=== PATIENT | female | born 1960 | race Caucasian/White ===

== ENCOUNTER → 2017-09-18 | Outpatient (CLI) | payer OTHER ==
[~2017-09-18] MED LIST: ALBU6.7H INH; DICL75TA PO; IRON18TA PO; LEVO25TA4 PO; PROZ20CA11 PO; TYLETAB34 PO
--- NOTE | 2017-09-18 14:45 | RADRPT ---
EXAM DATE/TIME: 09/18/2017 14:27 [facility] COMPARISON: No previous studies available for comparison. INDICATIONS : Evaluate for pneumonia, pneumothorax and communicable diseases. Pre-op hysterectomy MEDICAL HISTORY : Asthma SURGICAL HISTORY : None. ENCOUNTER: Initial ACUITY: 1 day PAIN SCORE: 0/10 LOCATION: chest FINDINGS: PA and lateral views of the chest demonstrate the lungs to be symmetrically aerated without evidence of mass, infiltrate or effusion. The cardiomediastinal contours are unremarkable. Osseous structure s demonstrate degenerative changes in the thoracic spine but are otherwise intact. CONCLUSION: 1. No acute cardiopulmonary findings identified. Gary Sanchez MD on September 18, 2017 at 14:41 Board Certified Radiologist. This report was verified electronically.
--- NOTE | 2017-09-19 20:54 | EKG ---
Date Performed: 09/18/2017 Time Performed: 13:28:31 PTAGE: 57 years EKG: Sinus rhythm LOW QRS VOLTAGE IN PRECORDIAL LEADS BORDERLINE ECG NO PREVIOUS TRACING DOCTOR: Bereket Farmer Interpretating Date/Time 09/19/2017 20:53:04
== END ==
LOC: CPRE 13:13
PROVIDERS: ATTEND Obstetrics & Gynecology
DX: Z01.811 Encounter for preprocedural respiratory examination (principal); Z01.810 Encounter for preprocedural cardiovascular examination; N81.10 Cystocele, unspecified; N83.209 Unspecified ovarian cyst, unspecified side; N81.6 Rectocele; R94.31 Abnormal electrocardiogram [ECG] [EKG]
CPT/HCPCS: 71046; 93005

== ENCOUNTER 2017-09-26 11:48 | Observation (INO) | payer OTHER ==
[~2017-09-26] VITALS: Ht 170.2 cm; Wt 103.6 kg
[2017-09-26] MEDS ORDERED: ceFAZolin INJ 1,000 MG VIAL IV ONE (12:00)
[2017-09-26] MEDS ORDERED: ONDANSETRON HCL 4 MG/2 ML VIAL IV ONE (12:00)
[2017-09-26] MEDS ORDERED: LACTATED RINGER'S 1000 ML INJ 2,000 ML IV ONE (12:00)
[2017-09-26] MEDS ORDERED: NEOSTIGMINE 5 MG/5 ML SYRINGE IV PUSH ONE (12:00)
[2017-09-26] MEDS ORDERED: VECURONIUM BROMIDE 20 MG VIAL IV ONE (12:00)
[2017-09-26] MEDS ORDERED: ePHEDrine/NS 25 MG/5 ML SYRINGE IV ONE (12:00)
[2017-09-26] MEDS ORDERED: DEXAMETHASONE SOD PHOS 4 MG/ML VIAL IV ONE (12:00)
[2017-09-26] MEDS ORDERED: ROCURONIUM INJ 50 MG/5 ML SYRINGE IV PUSH ONE (12:00)
[2017-09-26] MEDS ORDERED: LIDOCAINE HCL 1% PF 5 ML SYRINGE OTHER ONE (12:00)
[2017-09-26] MEDS ORDERED: GLYCOPYRROLATE 1 MG/5 ML SYRINGE IV PUSH ONE (12:00)
[2017-09-26] MEDS ORDERED: STERILE WATER FOR INJECTION 20 ML VIAL IV ONE (12:00)
[2017-09-26] MEDS ORDERED: PROPOFOL 200 MG/20 ML AMP IV ONE (12:00)
[2017-09-26] MEDS ORDERED: CHLORHEXIDINE GLUCONATE 2 % 1 PACK (2 CLOTHS) TOPICAL PRN (12:30)
[2017-09-26] MEDS ORDERED: SODIUM CHLORID 0.9% 500 ML IV PRN (12:30)
[2017-09-26] MEDS ORDERED: METOPROLOL TARTRATE 25 MG TAB PO PRN (12:30)
[2017-09-26] MEDS ORDERED: POVIDONE IODINE 5% (ANTISEPSIS KIT) 4 APPLICATIONS EACH NARE PRN (12:30)
[2017-09-26] MEDS ORDERED: LACTATED RINGER'S 1000 ML IV PRN (12:30)
[2017-09-26] MEDS ORDERED: ACETAMINOPHEN 1000 MG/100 ML 100 ML IV ONE (14:55)
[2017-09-26] MEDS ORDERED: ESTROGENS CONJUGATED VAG CREA 15 APPL/30 GM TUBE ONE (15:05)
[2017-09-26] MEDS ORDERED: SODIUM CHLORIDE 0.9% 20 ML VIAL ONE (15:05)
[2017-09-26] MEDS ORDERED: APREPITANT 40 MG CAP ONE (15:16)
[2017-09-26] MEDS ORDERED: FAMOTIDINE 20 MG/2 ML VIAL ONE (15:16)
[2017-09-26] MEDS ORDERED: KETAMINE HCL 10 MG/5 ML SYRINGE IV PUSH ONE (15:31)
[2017-09-26] MEDS ORDERED: BUPIVACAINE/EPINEPHRINE 0.25% 50 ML VIAL ONE (15:36)
[2017-09-26] MEDS ORDERED: ceFAZolin INJ 1,000 MG VIAL ONE (16:20)
[2017-09-26] MEDS ORDERED: ZOLPIDEM TARTRATE 5 MG TAB PO PRN (19:30)
[2017-09-26] MEDS ORDERED: LORazepam 0.5 MG TAB PO PRN (19:30)
[2017-09-26] MEDS ORDERED: ALBUTEROL SULFATE 90 MCG/ACT HFA 8 GM INHALER INH PRN (19:30)
[2017-09-26] MEDS ORDERED: ONDANSETRON HCL 4 MG/2 ML VIAL IVP PRN (19:30)
[2017-09-26] MEDS ORDERED: diphenhydrAMINE HCL 25 MG CAP PO PRN (19:30)
[2017-09-26] MEDS ORDERED: SODIUM CHLORIDE 0.9% FLUSH 10 ML FLUSH IV FLUSH PRN (19:30)
[2017-09-26] MEDS ORDERED: DO NOT ADM ANY ANTICOAGULANT DRUGS PRN (19:37)
[2017-09-26] MEDS ORDERED: MIDAZOLAM HCL 2 MG/2 ML VIAL ONE (19:46)
[2017-09-26] MEDS: LACTATED RINGER'S 1000 ML INJ 1,000 ML IV SCH (20:00)
[2017-09-26] MEDS ORDERED: *morphine SULFATE 8 MG/ML PERIprocedure ONLY ONE (20:19)
[2017-09-26] MEDS ORDERED: HYDROmorphone HCL PF 2 MG/ML VIAL IV PUSH PRN (20:30)
[2017-09-26] MEDS: SODIUM CHLORIDE 0.9% FLUSH 10 ML FLUSH IV FLUSH SCH (21:00)
[2017-09-26] MEDS: oxyCODONE/ACETAMINOPHEN 5 MG/325 MG TAB PO PRN (21:24)
[2017-09-26] MEDS: DOCUSATE SODIUM 100 MG CAP PO SCH (21:24)
[2017-09-26 21:26] VITALS: BP 94/61; PULSE 74; RESP 19; TEMP 97.7; O2SAT 97
[2017-09-26 23:56] VITALS: BP 96/59; PULSE 73; RESP 18; TEMP 97.9; O2SAT 98
[2017-09-27] MEDS: oxyCODONE/ACETAMINOPHEN 5 MG/325 MG TAB PO PRN ×4 (01:16→20:50)
[2017-09-27] MEDS: LACTATED RINGER'S 1000 ML INJ 1,000 ML IV SCH ×3 (03:28→19:28)
[2017-09-27 04:24] VITALS: BP 92/54; PULSE 72; RESP 18; TEMP 98.2; O2SAT 96
[2017-09-27] MEDS: LEVOTHYROXINE SODIUM 25 MCG TAB PO SCH (05:36)
[2017-09-27 05:51] LABS: BASOPHIL % 0.6 % (0.0-2.0); HEMATOCRIT 28.8 % (35.0-46.0); LYMPH % 6.4 % (9.0-44.0); MEAN CELL VOLUME 89.1 FL (80.0-100.0); MEAN CORPUSCULAR HEMOGLOBIN 30.8 PG (27.0-34.0); MEAN CORPUSCULAR HGB CONC 34.6 % (32.0-36.0); MEAN PLATELET VOLUME 8.2 FL (7.0-11.0); MONO % 5.4 % (0.0-8.0); NEUT % 87.6 % (16.0-70.0); PLATELET COUNT 188 TH/MM3 (150-450); RED BLOOD COUNT 3.24 MIL/MM3 (4.00-5.30); RED CELL DISTRIBUTION WIDTH 13.1 % (11.6-17.2); WHITE BLOOD COUNT 7.7 TH/MM3 (4.0-11.0)
[2017-09-27 05:52] LABS: AUTOMATED NEUTROPHIL # 6.7 TH/MM3 (1.8-7.7); LYMPHOCYTE # 0.5 TH/MM3 (1.0-4.8); MONOCYTE # 0.4 TH/MM3 (0-0.9)
[2017-09-27 06:14] LABS: BICARBONATE 25.8 MEQ/L (21.0-32.0); CREATININE 0.63 MG/DL (0.50-1.00)
[2017-09-27 07:45] VITALS: BP 85/48; PULSE 72; RESP 14; TEMP 97.2
[2017-09-27 08:28] VITALS: BP 92/51; O2SAT 98
[2017-09-27] MEDS: SODIUM CHLORIDE 0.9% FLUSH 10 ML FLUSH IV FLUSH SCH ×2 (09:00→19:28)
--- NOTE | 2017-09-27 09:13 | HHI.PR ---
Subjective Remarks Doing well, pain is well controlled, Objective Vital Signs Vital Signs Date Time Temp Pulse Resp B/P (MAP) Pulse Ox O2 Delivery O2 Flow Rate FiO2 09/27/17 04:24 98.2 72 18 92/54 (67) 96 09/26/17 23:56 97.9 73 18 96/59 (71) 98 09/26/17 22:20 Nasal Cannula 1.00 09/26/17 21:26 97.7 74 19 94/61 (72) 97 09/26/17 20:45 74 14 96/50 (65) 95 Nasal Cannula 2 09/26/17 20:31 71 14 104/51 (68) 92 Nasal Cannula 2 09/26/17 20:15 82 22 112/58 (76) 92 Nasal Cannula 2 09/26/17 20:00 94 16 113/59 (77) 96 Nasal Cannula 2 09/26/17 19:45 77 14 108/60 (76) 96 Nasal Cannula 2 09/26/17 19:35 98.6 79 19 102/54 (70) 99 Nasal Cannula 2 09/26/17 12:40 97.9 74 20 110/65 (80) 96 I/O 09/26/17 09/26/17 09/26/17 09/27/17 09/27/17 09/27/17 07:00 15:00 23:00 07:00 15:00 23:00 Intake Total 2900 ml 1300 ml Output Total 750 ml 800 ml Balance 2150 ml 500 ml Intake Oral 250 ml IV Total 2900 ml 1050 ml Output Urine Total 350 ml 800 ml Estimated Blood Loss 400 ml Result Diagram: 09/27/17 0457 09/27/17 0457 Objective Remarks Chest is clear, regular rate and rhythm. Abdomen is soft and non-distended. bandaids are clean and dry. Ext no CCE. escobar to bsd clear urine A/P Assessment and Plan Post Op Day 1 Doing well pt to eat, ambulate and shower today we will dc escobar tomorrow am routine care will consider dc in 1-2 days Sena Roca MD Sep 27, 2017 09:13
[2017-09-27] MEDS: FLUoxetine HCL 20 MG CAP PO SCH (09:42)
[2017-09-27] MEDS: DOCUSATE SODIUM 100 MG CAP PO SCH ×2 (09:42→20:46)
[2017-09-27] MEDS: IRON SUCROSE INJ 200 MG in SODIUM CHLORIDE 0.9% INJ 100 ML IV SCH (10:52)
[2017-09-27 11:10] VITALS: BP 92/49; PULSE 77; RESP 18; TEMP 98.1; O2SAT 96
[2017-09-27] MEDS: IBUPROFEN 600 MG TAB PO PRN ×2 (14:53→20:48)
[2017-09-27 14:55] VITALS: BP 85/49; PULSE 69; RESP 16; TEMP 98.6; O2SAT 99
[2017-09-27 20:00] VITALS: BP 83/50; PULSE 82; RESP 16; TEMP 98.3; O2SAT 96
[2017-09-28] VITALS (7 sets, daily range): BP systolic 89–104; BP diastolic 47–61; PULSE 70–79; RESP 16–20; TEMP 97.8–98.8; O2SAT 95–98
[2017-09-28] MEDS: LACTATED RINGER'S 1000 ML INJ 1,000 ML IV SCH (03:28)
[2017-09-28] MEDS: IBUPROFEN 600 MG TAB PO PRN ×3 (05:30→21:43)
[2017-09-28] MEDS: LEVOTHYROXINE SODIUM 25 MCG TAB PO SCH (05:30)
[2017-09-28] MEDS: oxyCODONE/ACETAMINOPHEN 5 MG/325 MG TAB PO PRN ×4 (05:30→21:44)
[2017-09-28 05:53] LABS: BASOPHIL % 0.5 % (0.0-2.0); EOSINOPHIL # 0.7 TH/MM3 (0-0.4); EOSINOPHIL % 10.5 % (0.0-4.0); HEMATOCRIT 25.2 % (35.0-46.0); HEMOGLOBIN 8.6 GM/DL (11.6-15.3); LYMPH % 23.8 % (9.0-44.0); LYMPHOCYTE # 1.6 TH/MM3 (1.0-4.8); MEAN CELL VOLUME 90.6 FL (80.0-100.0); MEAN CORPUSCULAR HGB CONC 34.2 % (32.0-36.0); MEAN PLATELET VOLUME 8.3 FL (7.0-11.0); MONO % 7.5 % (0.0-8.0); MONOCYTE # 0.5 TH/MM3 (0-0.9); NEUT % 57.7 % (16.0-70.0); PLATELET COUNT 157 TH/MM3 (150-450); RED BLOOD COUNT 2.78 MIL/MM3 (4.00-5.30); WHITE BLOOD COUNT 6.9 TH/MM3 (4.0-11.0)
[2017-09-28] MEDS: DOCUSATE SODIUM 100 MG CAP PO SCH ×2 (08:40→21:43)
[2017-09-28] MEDS: FLUoxetine HCL 20 MG CAP PO SCH (08:40)
[2017-09-28] MEDS: IRON SUCROSE INJ 200 MG in SODIUM CHLORIDE 0.9% INJ 100 ML IV SCH (08:44)
--- NOTE | 2017-09-28 09:02 | HHI.PR ---
Subjective Remarks Doing well, pain is well controlled, eating well. Objective Vital Signs Vital Signs Date Time Temp Pulse Resp B/P (MAP) Pulse Ox O2 Delivery O2 Flow Rate FiO2 09/28/17 07:44 98.1 74 18 97/60 (72) 97 09/28/17 04:00 98.0 79 16 89/51 (64) 97 09/28/17 00:00 98.8 78 18 97/47 (64) 95 09/27/17 20:00 98.3 82 16 83/50 (61) 96 09/27/17 14:55 98.6 69 16 85/49 (61) 99 09/27/17 11:10 98.1 77 18 92/49 (63) 96 09/27/17 10:42 18 I/O 09/27/17 09/27/17 09/27/17 09/28/17 09/28/17 09/28/17 07:00 15:00 23:00 07:00 15:00 23:00 Intake Total 1300 ml 2388 ml 1026 ml Output Total 800 ml 1400 ml 1800 ml Balance 500 ml -1400 ml 2388 ml -774 ml Intake Oral 250 ml 800 ml 240 ml IV Total 1050 ml 1588 ml 786 ml Output Urine Total 800 ml 1400 ml 1800 ml # Sanitary Pads 1 Pads Result Diagram: 09/28/17 0456 09/27/17 0457 Objective Remarks Chest is clear, regular rate and rhythm. Abdomen is soft and non-distended. incisions are clean and dry. Ext no CCE. escobar out this am, pt has voided A/P Assessment and Plan Post Op Day 2 Doing well, pain well controled with oral pain medication H/H 8.6/25.2,pt will get next dose of venofer today ambulating in room without SOB, dizziness or chest pain we will do 2 post residual voids routine care will consider diogenes tomorrow Starla Dorantes Sep 28, 2017 09:02
--- NOTE | 2017-09-28 10:57 | PD.CONS ---
HPI Service [facility] Hospitalists Consult Requested By Dr. Roca Reason for Consult Hypoxemia Primary Care Physician Sarika Pineda MD Diagnoses: History of Present Illness 57-year-old female admitted to the hospital for hysterectomy. Patient had hypoxemia postoperatively, hospitalist service consulted for medical management. On my evaluation, she reports a history of asthma which has been well controlled with albuterol inhalers. She is currently on room air and states she is feeling back to her normal self. She denies any cough or wheezing. No fevers. Review of Systems Constitutional: DENIES: Fever Respiratory: DENIES: Cough, Wheezing, Shortness of breath Except as stated in HPI: all other systems reviewed are Neg Past Family Social History Allergies: Coded Allergies: Penicillins (Verified Allergy, Severe, Shortness of Breath, 09/26/17) sulfacetamide (Verified Adverse Reaction, Severe, Nausea/Vomiting, 09/26/17 ) Past Medical History Asthma Iron deficiency anemia per the patient Past Surgical History Hysterectomy Tonsillectomy Reported Medications Reported Meds & Active Scripts Active Reported Iron (Ferrous Sulfate) 18 Mg Tab 1 Tab PO DAILY Tylenol-Codeine #3 (Acetaminophen-Codeine) 300-30 mg Tab 1 Tab PO Q6H PRN Prozac (Fluoxetine HCl) 20 Mg Cap 20 Mg PO DAILY Levothyroxine (Levothyroxine Sodium) 25 Mcg Tab 25 Mcg PO DAILY Proventil Hfa 6.7 GM Inh (Albuterol Sulfate) 90 Mcg/Act Aer 2 Puff INH Q4-6H PRN Diclofenac Sodium DR (Diclofenac Sodium) 75 Mg Tabdr 75 Mg PO DAILY Family History Reviewed and is noncontributory. Social History Patient denies tobacco or alcohol use. Physical Exam Vital Signs Vital Signs Date Time Temp Pulse Resp B/P (MAP) Pulse Ox O2 Delivery O2 Flow Rate FiO2 09/28/17 07:44 98.1 74 18 97/60 (72) 97 09/28/17 04:00 98.0 79 16 89/51 (64) 97 09/28/17 00:00 98.8 78 18 97/47 (64) 95 09/27/17 20:00 98.3 82 16 83/50 (61) 96 09/27/17 14:55 98.6 69 16 85/49 (61) 99 09/27/17 11:10 98.1 77 18 92/49 (63) 96 Physical Exam GENERAL: This is a well-nourished, well-developed patient, in no apparent distress. SKIN: No rashes, ecchymoses or lesions. Cool and dry. HEAD: Atraumatic. Normocephalic. No temporal or scalp tenderness. EYES: Pupils equal round and reactive. Extraocular motions intact. No scleral icterus. No injection or drainage. ENT: Nose without bleeding, purulent drainage or septal hematoma. Throat without erythema, tonsillar hypertrophy or exudate. Uvula midline. Airway patent. NECK: Trachea midline. No JVD or lymphadenopathy. Supple, nontender, no meningeal signs. CARDIOVASCULAR: Regular rate and rhythm without murmurs, gallops, or rubs. RESPIRATORY: Clear to auscultation. Breath sounds equal bilaterally. No wheezes , rales, or rhonchi. GASTROINTESTINAL: Abdomen soft, non-tender, nondistended. No hepato-splenomegaly , or palpable masses. No guarding. MUSCULOSKELETAL: Extremities without clubbing, cyanosis, or edema. No joint tenderness, effusion, or edema noted. No calf tenderness. Negative Homans sign bilaterally. NEUROLOGICAL: Awake and alert. Cranial nerves II through XII intact. Motor and sensory grossly within normal limits. Five out of 5 muscle strength in all muscle groups. Normal speech. Laboratory Laboratory Tests Test 09/28/17 04:56 White Blood Count 6.9 Red Blood Count 2.78 Hemoglobin 8.6 Hematocrit 25.2 Mean Corpuscular Volume 90.6 Mean Corpuscular Hemoglobin 31.0 Mean Corpuscular Hemoglobin Concent 34.2 Red Cell Distribution Width 13.0 Platelet Count 157 Mean Platelet Volume 8.3 Neutrophils (%) (Auto) 57.7 Lymphocytes (%) (Auto) 23.8 Monocytes (%) (Auto) 7.5 Eosinophils (%) (Auto) 10.5 Basophils (%) (Auto) 0.5 Neutrophils # (Auto) 4.0 Lymphocytes # (Auto) 1.6 Monocytes # (Auto) 0.5 Eosinophils # (Auto) 0.7 Basophils # (Auto) 0.0 CBC Comment DIFF FINAL Differential Comment Result Diagram: 09/28/17 0456 09/27/17 0457 Assessment and Plan Assessment and Plan Hypoxemia post op in a patient with Asthma. Doing well on room air. Recommend continue to use home albuterol inhaler and IS Cleared for DC from my standpoint. F/U with PCP. Discussed Condition With Baakri Ko MD Sep 28, 2017 10:57
--- NOTE | 2017-09-28 16:54 | HHI.DCPOC ---
Discharge Care Plan Diagnosis: (1) Anemia (2) History of hysterectomy for benign disease Report Symptoms to Your Doctor -Temperature above 100.5 degrees -Redness, of incision or excessive or foul smelling drainage -Unusual pain or calf pain -Increased vaginal bleeding -Painful or difficulty urinating -Feelings of extreme sadness or anxiety after 2 weeks Goals to Promote Your Health * To prevent worsening of your condition and complications * To maintain your health at the optimal level Directions to Meet Your Goals Take your medications as prescribed Follow your dietary instruction Follow activity as directed Ensure plenty of rest for recovery Drink fluids for hydration Keep your appointments as scheduled Take your immunizations and boosters as scheduled If your symptoms worsen call your PCP, if no PCP go to Urgent Care Center or Emergency Room Smoking is Dangerous to Your Health. Avoid second hand smoke Call the 24-hour crisis hotline for domestic abuse at Sena Roca MD Sep 28, 2017 16:54
--- NOTE | 2017-09-28 16:55 | HHI.DCPOC ---
Discharge Care Plan Diagnosis: (1) Pelvic relaxation (2) Anemia (3) History of hysterectomy for benign disease Report Symptoms to Your Doctor -Temperature above 100.5 degrees -Redness, of incision or excessive or foul smelling drainage -Unusual pain or calf pain -Increased vaginal bleeding -Painful or difficulty urinating -Feelings of extreme sadness or anxiety after 2 weeks Goals to Promote Your Health * To prevent worsening of your condition and complications * To maintain your health at the optimal level Directions to Meet Your Goals Take your medications as prescribed Follow your dietary instruction Follow activity as directed Ensure plenty of rest for recovery Drink fluids for hydration Keep your appointments as scheduled Take your immunizations and boosters as scheduled If your symptoms worsen call your PCP, if no PCP go to Urgent Care Center or Emergency Room Smoking is Dangerous to Your Health. Avoid second hand smoke Call the 24-hour crisis hotline for domestic abuse at Sena Roca MD Sep 28, 2017 16:55
[2017-09-29 05:00] VITALS: BP 106/63; PULSE 77; RESP 18; TEMP 98.1; O2SAT 97
[2017-09-29] MEDS: IBUPROFEN 600 MG TAB PO PRN (05:10)
[2017-09-29] MEDS: oxyCODONE/ACETAMINOPHEN 5 MG/325 MG TAB PO PRN ×2 (05:11→09:10)
[2017-09-29] MEDS: LEVOTHYROXINE SODIUM 25 MCG TAB PO SCH (06:14)
[2017-09-29 08:00] VITALS: BP 107/68; PULSE 70; RESP 18; TEMP 97.8; O2SAT 97
[2017-09-29] MEDS: IRON SUCROSE INJ 200 MG in SODIUM CHLORIDE 0.9% INJ 100 ML IV SCH (08:54)
[2017-09-29] MEDS: SODIUM CHLORIDE 0.9% FLUSH 10 ML FLUSH IV FLUSH SCH (08:54)
[2017-09-29] MEDS: LACTATED RINGER'S 1000 ML INJ 1,000 ML IV SCH (09:07)
[2017-09-29] MEDS: DOCUSATE SODIUM 100 MG CAP PO SCH (09:09)
[2017-09-29] MEDS: FLUoxetine HCL 20 MG CAP PO SCH (09:09)
--- NOTE | 2017-09-29 11:06 | HHI.PR ---
Subjective Remarks Doing well, pain is well controlled, eating well. No BM yet but good flatus. Objective Vital Signs Vital Signs Date Time Temp Pulse Resp B/P (MAP) Pulse Ox O2 Delivery O2 Flow Rate FiO2 09/29/17 08:00 97.8 70 18 107/68 (81) 97 09/29/17 05:00 98.1 77 18 106/63 (77) 97 09/28/17 23:47 98.1 70 18 93/54 (67) 09/28/17 20:26 98.3 72 18 96/52 (67) 09/28/17 16:00 97.8 78 18 104/61 (75) 98 09/28/17 11:29 98.0 73 20 94/55 (68) 96 I/O 09/28/17 09/28/17 09/28/17 09/29/17 09/29/17 09/29/17 07:00 15:00 23:00 07:00 15:00 23:00 Intake Total 1026 ml Output Total 1800 ml 425 ml Balance -774 ml -425 ml Intake Oral 240 ml IV Total 786 ml Output Urine Total 1800 ml 425 ml Bladder Scan Volume Amount 78 ml 188 ml 175 ml Result Diagram: 09/28/17 0456 09/27/17 0457 Objective Remarks Chest is clear, regular rate and rhythm. Abdomen is soft and non-distended. incisions are clean and dry. Ext no CCE. escobar out this am, pt has voided A/P Assessment and Plan Post Op Day #3 No BM yet will give a Dulcolax suppository Will d/c home and see in 2 weeks Sena Roca MD Sep 29, 2017 11:06
[2017-09-29] MEDS ORDERED: BISACODYL 10 MG SUPP RECTAL ONE (11:15)
--- NOTE | 2017-10-03 08:34 | MP ---
cc: Sena Roca MD DATE OF OPERATION: 09/26/2017 PREOPERATIVE DIAGNOSIS: 1. Symptomatic pelvic relaxation. 2. Cystocele. 3. Rectocele. 4. Right ovarian mass. POSTOPERATIVE DIAGNOSIS: 1. Symptomatic pelvic relaxation. 2. Cystocele. 3. Rectocele. 4. Right ovarian mass. PROCEDURE: Laparoscopic-assisted vaginal hysterectomy with bilateral salpingectomy, right oophorectomy, anterior and posterior repair. ANESTHESIA: General endotracheal intubation. SURGEON: Sena Roca MD FINDINGS: Examination under anesthesia revealed a large rectocele, moderate cystocele. There was +1 uterine descensus. On bimanual exam, I could not palpate the right ovarian mass. Laparoscopic exam revealed a 4 x 5 cm right ovarian mass. It looked benign. The left ovary was normal. The fallopian tubes had been previously ligated and a midportion of each tube was absent. The uterus looked normal in size and shape. The posterior and anterior cul-de-sacs were normal. The upper abdomen was normal. COMPLICATIONS: Large blood loss. COUNTS: Instrument counts were correct. ESTIMATED BLOOD LOSS: 500 mL. FLUIDS: Crystalloid. DISPOSITION: The patient tolerated the procedure well and went to the recovery room in good condition. DESCRIPTION OF PROCEDURE: The patient was taken to the operating theater and identified by name band and verbally. She was given a general anesthetic and placed in the dorsal lithotomy position. She was prepped and draped in the usual sterile manner for a laparoscopic-assisted vaginal hysterectomy and a Love catheter was inserted. A time-out was taken and once everyone agreed, we proceeded with this examination under anesthesia with the above findings. A weighted speculum was placed in the vagina. The anterior lip of the cervix was grasped with a single-tooth tenaculum. The cervix was dilated and a Hulka clamp was placed for uterine manipulation. The attention was turned to the umbilical area. A small subumbilical incision was made and the abdomen was entered under direct vision without incident. A pneumoperitoneum was created with 3 liters of CO2. Inferolateral to the umbilicus bilaterally, we placed, 2 more 5 mm ports for uterine manipulation and for the Harmonic scalpel. We began with the round ligaments. They were taken down without difficulty and the bladder flap was begun. We noticed quite a bit of oozing at this point. She did have quite a bit of bleeding from the laparoscopic hysterectomy. The right ovary was noted and the infundibulopelvic ligament was then taken down with the Harmonic scalpel and that pedicle was hemostatic. The fallopian tube on the left side was then grasped at the fimbriated end and that portion of tube was removed through the 5 mm port. The remainder of that tube was taken down and then we began taking down the broad ligament bilaterally. The bladder flap was then more fully developed and the bladder was pushed out of harms way and we took the uterine vessels at the level of the internal cervical os without difficulty. However, during this entire procedure, she did ooze quite a bit and some of the bleeding had to be controlled with the Kleppinger bipolar forceps. The cardinal ligament was then taken down slowly, taking small bites with the Harmonic scalpel staying right close to the cervix. Once the vaginal apex was obtained, we stopped the dissection. Again, we went and coagulated small bleeders with the Kleppinger forceps. At this point, we went below and we made a circumferential incision around the cervix and removed the entire uterus, tubes and her right ovary. The ovary came out totally intact without difficulty. Again, the vaginal cuff, there was quite a bit of bleeding here, so we immediately closed the cuff and began the anterior repair. We made a small incision below the urethra and took that incision down in a sagittal plane until the vaginal apex was attained. we took the mucosa off of the underlying endopelvic fascia by sharp and blunt dissection without difficulty. Excess mucosa was then trimmed and the endopelvic fascia was plicated from the level of the Love bulb to right below the urethral meatus. The vaginal mucosa was then repaired with 3-0 Vicryl in an interrupted fashion with good hemostatic control. We turned our attention to the perineum. We made an incision along the perineum and undermined the mucosa posteriorly in the midline into the vaginal apex. The vaginal mucosa was dissected off of the endopelvic fascia bilaterally and the endopelvic fascia was then plicated together in an interrupted fashion with 2-0 Vicryl the entire length of the vagina with excellent results. The excess mucosa was trimmed and the vaginal mucosa was plicated with 3-0 Vicryl in an interrupted fashion. The perineum was then built up using a 2-0 Vicryl to go from a coronal to a sagittal plane building up the perineum nicely. This incision was repaired with a 3-0 Vicryl in a subcuticular manner externally until the vaginal outlet was attained. The vagina was then inspected. It was entirely hemostatic and washed out with sterile saline. The vagina was then packed with a 1 inch vaginal packing laden with Premarin. We went back up top because of the excessive bleeding and took a look with the laparoscope. Everything was hemostatic. There was no more bleeding. We irrigated the pelvis out with a large amount of fluid and then we removed the laparoscope under direct vision. The air was released through the second and third punctures and those incisions were repaired with a 4-0 Monocryl in a subcuticular manner. She tolerated the procedure well. She did have a large blood loss and we will be checking her for a bleeding diathesis when she comes back for a postoperative visit and will follow her hematocrit closely postoperatively. R. Krish Roca MD RJV/TABITHA , 07:51 AM , 08:33 AM
== END 2017-09-29 13:11 | disposition home or self-care (01) ==
LOC: HSDC 11:48 → EDUNIT# 15:30 → HSDI 19:32 → H1EA 21:18
PROVIDERS: ADMIT Obstetrics & Gynecology; ATTEND Obstetrics & Gynecology
DX: N81.2 Incomplete uterovaginal prolapse (principal); N81.6 Rectocele; D25.1 Intramural leiomyoma of uterus; N99.61 Intraoperative hemorrhage and hematoma of a genitourinary system organ or structure complicating a genitourinary system procedure; R09.02 Hypoxemia; D50.9 Iron deficiency anemia, unspecified; J45.909 Unspecified asthma, uncomplicated
CPT/HCPCS: 00840; 57260; 58552; 80048; 85025; 88302; 88307; 94150; 96361; 96365; 96376; G0378; J0131; J0690; J1100; J1756; J2250; J2270; J2405; J2710; J3010; J7120; J8501

== ENCOUNTER 2017-10-19 12:18 | Inpatient (IN) | payer SELFPAY ==
[~2017-10-19] VITALS: Ht 170.2 cm; Wt 105.0 kg
[2017-10-19 12:41] VITALS: BP 125/64; PULSE 88; RESP 20; TEMP 101.4; O2SAT 97
[2017-10-19 13:40] LABS: AUTOMATED NEUTROPHIL # 10.3 TH/MM3 (1.8-7.7); BASOPHIL # 0.1 TH/MM3 (0-0.2); EOSINOPHIL # 0.1 TH/MM3 (0-0.4); EOSINOPHIL % 1.1 % (0.0-4.0); HEMATOCRIT 31.4 % (35.0-46.0); HEMOGLOBIN 10.6 GM/DL (11.6-15.3); LYMPH % 9.4 % (9.0-44.0); LYMPHOCYTE # 1.2 TH/MM3 (1.0-4.8); MEAN CELL VOLUME 88.8 FL (80.0-100.0); MEAN CORPUSCULAR HEMOGLOBIN 29.8 PG (27.0-34.0); MEAN CORPUSCULAR HGB CONC 33.6 % (32.0-36.0); MEAN PLATELET VOLUME 8.3 FL (7.0-11.0); MONOCYTE # 0.8 TH/MM3 (0-0.9); NEUT % 82.5 % (16.0-70.0); PLATELET COUNT 223 TH/MM3 (150-450); RED BLOOD COUNT 3.54 MIL/MM3 (4.00-5.30); RED CELL DISTRIBUTION WIDTH 13.2 % (11.6-17.2); WHITE BLOOD COUNT 12.5 TH/MM3 (4.0-11.0)
--- NOTE | 2017-10-19 13:45 | RADRPT ---
EXAM DATE/TIME: 10/19/2017 13:32 [facility] COMPARISON: CHEST PA & LAT, September 18, 2017, 14:27. INDICATIONS : Congestion and coughing. MEDICAL HISTORY : None. SURGICAL HISTORY : None. ENCOUNTER: Initial ACUITY: 1 day PAIN SCORE: 0/10 LOCATION: Bilateral chest FINDINGS: PA and lateral views of the chest demonstrate patchy densities left midlung left upper lobe. Right jennifer ng clear. Heart normal in size. Osseous structures are intact. CONCLUSION: 1. Patchy infiltrates left lung. Medical treatment and followup to resolution using serial radiograph s. Weston Elaine MD on October 19, 2017 at 13:42 Board Certified Radiologist. This report was verified electronically.
[2017-10-19 13:53] LABS: BICARBONATE 26.9 MEQ/L (21.0-32.0); CALCIUM 8.8 MG/DL (8.5-10.1); CREATININE 0.87 MG/DL (0.50-1.00)
[2017-10-19] MEDS ORDERED: MOXIFLOXACIN 400 MG PREMIX 250 ML IV ONE (14:15)
[2017-10-19] MEDS ORDERED: SODIUM CHLOR 0.9% 1000 ML INJ 1,000 ML IV ONE ×2 (14:15→18:30)
[2017-10-19] MEDS ORDERED: VANCOMYCIN INJ 1,000 MG in SODIUM CHLOR 0.9% 250 ML INJ 250 ML IV ONE (14:15)
[2017-10-19] MEDS ORDERED: ONDANSETRON HCL 4 MG/2 ML VIAL IV PUSH ONE (14:15)
[2017-10-19] MEDS ORDERED: MORPHINE SULFATE 2 MG/ML SYRINGE IV PUSH ONE (14:15)
[2017-10-19] MEDS ORDERED: ACETAMINOPHEN 325 MG TAB PO ONE (14:15)
--- NOTE | 2017-10-19 14:20 | PD ---
HPI Chief Complaint: Fever Time Seen by Provider: 13:51 (Norris Alonso) Time Seen by Provider: 13:51 (Ashly Zazueta DO) Travel History International Travel<30 days: No Contact w/Intl Traveler<30days: No Traveled to known affect area: No (Norris Alonso) History of Present Illness HPI 57-year-old female that presents to the ED for evaluation of fever and sore throat and neck pain. Patient reports the symptoms started yesterday. Patient had surgery by Dr. Daly less than a month ago and went to his office today and did a strep test that was positive. Patient complaining of a lot of neck pain and the physician was very concerned. Patient denies any abdominal pain or any trouble with the abdomen. No scar or lesions. Patient was brought here for evaluation of the fever and the neck pain concerning for meningitis. Patient denies any sick contacts. Denies take any immunosuppressants. Per patient she was going to be given azithromycin today but she has not taken it yet. She did took Tylenol 3 with codeine to help with the discomfort with minimal relief. Per patient she feels like her neck is going to give out on her. She denies any falls or injuries. Per patient she has a headache as well. She denies any chest pain or shortness of breath but she states having some cough. No urinary or bowel movement issues. Per patient the pain in the neck is 7 out of 10. She denies ever having to like this before. Allergies to penicillin and sulfa. (Norris Alonso) [facility] Past Medical History Arthritis: Yes Asthma: Yes Depression: Yes Cancer: No Cardiovascular Problems: No Diabetes: No Endocrine: No Genitourinary: No Hepatitis: No Hiatal Hernia: No Immune Disorder: No Kidney Stones: Yes Musculoskeletal: Yes (arthritis both knees) Neurologic: No Psychiatric: Yes Reproductive: No Respiratory: Yes (asthma) Thyroid Disease: Yes ?: Not (Norris Alonso) Past Surgical History Abdominal Surgery: Yes (gallbladder) AICD: No Cardiac Surgery: No Cholecystectomy: Yes (2011) Ear Surgery: No Endocrine Surgery: No Eye Surgery: No Genitourinary Surgery: No Gynecologic Surgery: No Hysterectomy: Yes (september 26, 2017 ) Joint Replacement: No Oral Surgery: Yes (TONSILS A CHILD,WISDOM TEETH REMOVED) Pacemaker: No Thoracic Surgery: No Tonsillectomy: Yes (Norris Alonso) Social History Alcohol Use: Yes (glass of wine per week ) Tobacco Use: No Substance Use: No (Nroris Alonso) Allergies-Medications (Allergen,Severity, Reaction): Coded Allergies: Penicillins (Verified Allergy, Severe, Shortness of Breath, 09/26/17) sulfacetamide (Verified Adverse Reaction, Severe, Nausea/Vomiting, 09/26/17 ) Reported Meds & Prescriptions Reported Meds & Active Scripts Active Reported Prozac (Fluoxetine HCl) 20 Mg Cap 20 Mg PO DAILY Levothyroxine (Levothyroxine Sodium) 25 Mcg Tab 125 Mcg PO DAILY Proventil Hfa 6.7 GM Inh (Albuterol Sulfate) 90 Mcg/Act Aer 2 Puff INH Q4-6H PRN Diclofenac Sodium DR (Diclofenac Sodium) 75 Mg Tabdr 75 Mg PO DAILY (Ashly Zazueta DO) Review of Systems Except as stated in HPI: all other systems reviewed are Neg (Norris Alonso) Physical Exam Narrative GENERAL: SKIN: Warm and dry. HEAD: Atraumatic. Normocephalic. EYES: Pupils equal and round 4 mm reactive to light and accommodation. No scleral icterus. No injection or drainage. ENT: No nasal bleeding or discharge. Mucous membranes pink and moist. Tongue is midline. No uvula deviation. Throat is erythematous. Patient cannot move her neck without severe pain and feels very weak on her neck. Patient cannot do head to chin test on her own from a laying down position. NECK: Trachea midline. No JVD. CARDIOVASCULAR: Regular rate and rhythm. No murmurs, S3, S4. RESPIRATORY: No accessory muscle use. Clear to auscultation. Breath sounds equal bilaterally. GASTROINTESTINAL: Abdomen soft, non-tender, nondistended. Hepatic and splenic margins not palpable. MUSCULOSKELETAL: Extremities without clubbing, cyanosis, or edema. No obvious deformities. Full range of motion of the upper and lower extremities bilaterally. 2+ pulses bilaterally. NEUROLOGICAL: Awake and alert. No obvious cranial nerve deficits. Motor grossly within normal limits. Five out of 5 muscle strength in the arms and legs. Normal speech. PSYCHIATRIC: Appropriate mood and affect; insight and judgment normal. (Norris Alonso) Data Data Last Documented VS Vital Signs Date Time Temp Pulse Resp B/P (MAP) Pulse Ox O2 Delivery O2 Flow Rate FiO2 10/19/17 14:51 82 18 116/53 (74) 93 Room Air 10/19/17 12:41 101.4 (Zazueta,Ashly DO) Orders Orders Complete Blood Count With Diff (10/19/17 12:43) Basic Metabolic Panel (Bmp) (10/19/17 12:43) Lactic Acid (10/19/17 12:43) Blood Culture (10/19/17 12:43) Influenzae A/B Antigen (10/19/17 12:43) Group A Rapid Strep Screen (10/19/17 12:43) Chest, Pa & Lat (10/19/17 ) Urinalysis - C+S If Indicated (10/19/17 12:43) Strep Culture (Group A) (10/19/17 13:15) Csf Cell Count + Differential (10/19/17 14:01) Total Protein, Csf (10/19/17 14:01) Glucose, Csf (10/19/17 14:01) Lumbar Puncture (10/19/17 ) Prothrombin Time / Inr (Pt) (10/19/17 14:01) Act Partial Throm Time (Ptt) (10/19/17 14:01) Iv Access Insert/Monitor (10/19/17 14:04) Ecg Monitoring (10/19/17 14:04) Oximetry (10/19/17 14:04) Sodium Chlor 0.9% 1000 Ml Inj (Ns 1000 M (10/19/17 14:15) Acetaminophen (Tylenol) (10/19/17 14:15) Morphine Inj (Morphine Inj) (10/19/17 14:15) Ondansetron Inj (Zofran Inj) (10/19/17 14:15) Vancomycin Inj (Vancomycin Inj) (10/19/17 14:15) Moxifloxacin 400 Mg Premix (Avelox 400 M (10/19/17 14:15) Urine Culture (10/19/17 14:30) Vital Signs (Adult) .As directed (10/19/17 16:24) Activity Bed Rest (10/19/17 16:24) Notify Radiology (10/19/17 16:24) ^ Encourage Fluids (10/19/17 16:24) Anticoagulant Alert (10/19/17 16:24) Csf Culture And Gram Stain (10/19/17 17:29) Admit Order (Ed Use Only) (10/19/17 18:12) (Ashly Zazueta DO) Labs Laboratory Tests Test 10/19/17 13:13 10/19/17 14:30 10/19/17 15:38 White Blood Count 12.5 TH/MM3 Red Blood Count 3.54 MIL/MM3 Hemoglobin 10.6 GM/DL Hematocrit 31.4 % Mean Corpuscular Volume 88.8 FL Mean Corpuscular Hemoglobin 29.8 PG Mean Corpuscular Hemoglobin Concent 33.6 % Red Cell Distribution Width 13.2 % Platelet Count 223 TH/MM3 Mean Platelet Volume 8.3 FL Neutrophils (%) (Auto) 82.5 % Lymphocytes (%) (Auto) 9.4 % Monocytes (%) (Auto) 6.0 % Eosinophils (%) (Auto) 1.1 % Basophils (%) (Auto) 1.0 % Neutrophils # (Auto) 10.3 TH/MM3 Lymphocytes # (Auto) 1.2 TH/MM3 Monocytes # (Auto) 0.8 TH/MM3 Eosinophils # (Auto) 0.1 TH/MM3 Basophils # (Auto) 0.1 TH/MM3 CBC Comment DIFF FINAL Differential Comment Blood Urea Nitrogen 8 MG/DL Creatinine 0.87 MG/DL Random Glucose 95 MG/DL Calcium Level 8.8 MG/DL Sodium Level 140 MEQ/L Potassium Level 4.0 MEQ/L Chloride Level 107 MEQ/L Carbon Dioxide Level 26.9 MEQ/L Anion Gap 6 MEQ/L Estimat Glomerular Filtration Rate 68 ML/MIN Lactic Acid Level 1.5 mmol/L Prothrombin Time 10.7 SEC Prothromb Time International Ratio 1.1 RATIO Activated Partial Thromboplast Time 27.2 SEC Urine Color YELLOW Urine Turbidity HAZY Urine pH 8.0 Urine Specific [place] 1.016 Urine Protein TRACE mg/dL Urine Glucose (UA) NEG mg/dL Urine Ketones NEG mg/dL Urine Occult Blood SMALL Urine Nitrite NEG Urine Bilirubin NEG Urine Urobilinogen LESS THAN 2.0 MG/DL Urine Leukocyte Esterase LARGE Urine RBC 43 /hpf Urine WBC 120 /hpf Urine Squamous Epithelial Cells 1 /hpf Urine Mucus FEW /lpf Microscopic Urinalysis Comment CULTURE INDICATED CSF Volume (Tube 1) 2.5 ML CSF Supernatant Color (tube 1) CLEAR CSF Gross Blood (Tube 1) 0 CSF Volume (Tube 2) 2.0 ML CSF Supernatant Color (tube 2) CLEAR CSF Gross Blood (Tube 2) 0 CSF Volume (Tube 3) 2.0 ML CSF Supernatant Color (tube 3) CLEAR CSF Gross Blood (Tube 3) 0 CSF Volume (Tube 4) 2.0 ML CSF Supernatant Color (tube 4) CLEAR CSF WBC (Tube 4) 20 /MM3 CSF RBC (Tube 4) 54 /MM3 CSF Neutrophils 0 % CSF Lymphocytes 83 % CSF Monocytes 10 % CSF Histiocytes 7 % CSF Glucose 55 MG/DL CSF Total Protein 36.3 MG/DL (Ashly Zazueta DO) MDM Medical Decision Making Medical Screen Exam Complete: Yes Emergency Medical Condition: Yes Medical Record Reviewed: Yes Interpretation(s) CBC & BMP Diagram 10/19/17 13:13 Calcium Level 8.8 strep and flu negative Last Impressions Chest X-Ray 10/19/17 0000 Signed Impressions: Service Date/Time: Thursday, October 19, 2017 13:32 - CONCLUSION: 1. Patchy infiltrates left lung. Medical treatment and followup to resolution using serial radiographs. Weston Elaine MD Differential Diagnosis Meningitis versus sepsis versus pneumonia versus strep throat versus fever versus influenza Narrative Course 57-year-old female that presents to the ED for evaluation of possible meningitis. Patient was properly examined and was found to have signs and symptoms certainly concerning for meningitis. She does have a high fever. Labs and imaging were done in triage and did show what appears to be possible pneumonia. Physical exam does appear to show issues with the patient moving her neck. She cannot do chin to chest as on her own. Labs and imaging order. Case discussed with my attending who agrees that LP needs to be done. This was ordered. My attending Dr. Zazueta agrees with plan. Labs and imaging showed pneumonia and UTI. Case discussed with Dr. Hummel who agrees to admission. (Norris Alonso) Diagnosis Primary Impression: Meningitis Additional Impressions: Pneumonia Qualified Codes: J18.1 - Lobar pneumonia, unspecified organism UTI (urinary tract infection) Qualified Codes: N30.00 - Acute cystitis without hematuria Admitting Information Admitting Physician Requests: Admit (Norris Alonso) Norris Alonso Oct 19, 2017 14:20 Ashly Zazueta DO Oct 20, 2017 09:39
[2017-10-19 14:51] VITALS: BP 116/53; PULSE 82; RESP 18; O2SAT 93
[2017-10-19 15:05] LABS: INTERNATIONAL NORMALIZED RATIO 1.1 RATIO; PROTHROMBIN TIME - PATIENT 10.7 SEC (9.8-11.6)
[2017-10-19 15:09] LABS: BILIRUBIN, URINE NEG (NEG); BLOOD, URINE SMALL (NEG); GLUCOSE,URINE NEG (NEG); KETONE, URINE NEG (NEG); MUCUS URINE FEW /lpf (OCC); NITRITE,URINE NEG (NEG); SQUAMOUS EPITHELIAL CELL URINE 1 /hpf (0-5); URINE COLOR YELLOW (YELLW/STRAW); URINE LEUKOCYTE ESTERASE LARGE (NEG)
--- NOTE | 2017-10-19 16:20 | RADRPT ---
EXAM DATE/TIME: 10/19/2017 15:38 [place] COMPARISON: No previous studies available for comparison. INDICATIONS : Patient presents with neck pain and fever here for lumbar puncture. MEDICAL HISTORY : Arthritis Asthma Depression Kidney Stones Thyroid Disease SURGICAL HISTORY : Cholecystectomy Hysterectomy Tonsilectomy ENCOUNTER: Initial ACUITY: 2 days PAIN SCORE: 6/10 LOCATION: chest and back LUMBAR PUNCTURE TIME: 15:38 hours FLUORO TIME: .15 minutes IMAGE SERIES: 1 ACCESS LEVEL: L3-4 OPENING PRESSURE: 22.5 cm of water Not requested. FLUID: 9.5 cc of clear CSF was collected and sent to the laboratory for analysis. PROCEDURE : 1. Fluoroscopic guided lumbar puncture. 2. Recording of opening pressure. The risks, benefits and alternatives to the procedure were explained and verbal and written consent w as obtained. The site was prepped in sterile fashion. Full sterile technique was used, including ca p, mask, sterile gloves and gown and a large sterile sheet. Hand hygiene and 2% chlorhexidine and/or betadine/alcohol prep was utilized per protocol for cutaneous antisepsis. The skin and subcutaneous tissues were infiltrated with local anesthetic solution. With fluoroscopic guidance the lumbar thecal sac was punctured at the above level described above and the opening pressure was recorded. The above described fluid was removed without difficulty. The patient tolerated the procedure well and there were no complications. CONCLUSION: Uncomplicated fluoroscopically guided lumbar puncture with pressures as above. William Trujillo MD on October 19, 2017 at 16:18 Board Certified Radiologist. This report was verified electronically.
[2017-10-19 16:23] LABS: TOTAL PROTEIN,CSF 36.3 MG/DL (15.0-45.0)
[2017-10-19 17:20] LABS: VOLUME TUBE # 1 2.5 ML
[2017-10-19 17:21] LABS: SUPERNATE COLOR TUBE #1 CLEAR (CLEAR)
[2017-10-19 17:22] LABS: CSF HISTIOCYTES 7 %; CSF LYMPHOCYTES 83 %; CSF MONOCYTES 10 %; CSF NEUTROPHILS 0 %; RBC TUBE #4 54 /MM3; WBC TUBE #4 20 /MM3 (0-10)
--- NOTE | 2017-10-19 18:19 | PD ---
Physical Exam Narrative I, Dr. Zazueta, have reviewed the advance practice practitioner's documentation and am in agreement, met with the patient face to face, made the diagnosis, and the medical decision making was done by me. *My assessment and Findings: Meningitis vs. tension headache vs. pneumonia 57yo F was sent by her [employer] Dr. Armstrong for fever, headache and neck pain since yesterday. Pt also has some coughing and throat pain. No exudate on tonsils. No focal neurologic deficits. Pt has no abdominal pain. Pt said her neck is stiff but good range of motion in neck rotation, there is some pain with flexion and extension. No kernig sign. Pt did have a fever of 102F at his office and is complaining of severe headache and neck pain so ordered lumbar puncture to r/o bacterial meningitis. Pt agrees and was empirically given vancomycin and moxifloxacin because she is allergic to penicillin. Labs reviewed, leukocytosis at 12.5. H/H is low but at baseline. Lactic acid 1.5. UA showed large leukocyte. WBC 120. CXR showed patchy infiltrates left lung. Pt is febrile here and given acetaminophen. Pt admitted for sepsis with UTI, pneumonia and r/o meningitis. Data Data Last Documented VS Vital Signs Date Time Temp Pulse Resp B/P (MAP) Pulse Ox O2 Delivery O2 Flow Rate FiO2 10/19/17 14:51 82 18 116/53 (74) 93 Room Air 10/19/17 12:41 101.4 Orders Orders Complete Blood Count With Diff (10/19/17 12:43) Basic Metabolic Panel (Bmp) (10/19/17 12:43) Lactic Acid (10/19/17 12:43) Blood Culture (10/19/17 12:43) Influenzae A/B Antigen (10/19/17 12:43) Group A Rapid Strep Screen (10/19/17 12:43) Chest, Pa & Lat (10/19/17 ) Urinalysis - C+S If Indicated (10/19/17 12:43) Strep Culture (Group A) (10/19/17 13:15) Csf Cell Count + Differential (10/19/17 14:01) Total Protein, Csf (10/19/17 14:01) Glucose, Csf (10/19/17 14:01) Lumbar Puncture (10/19/17 ) Prothrombin Time / Inr (Pt) (10/19/17 14:01) Act Partial Throm Time (Ptt) (10/19/17 14:01) Iv Access Insert/Monitor (10/19/17 14:04) Ecg Monitoring (10/19/17 14:04) Oximetry (10/19/17 14:04) Sodium Chlor 0.9% 1000 Ml Inj (Ns 1000 M (10/19/17 14:15) Acetaminophen (Tylenol) (10/19/17 14:15) Morphine Inj (Morphine Inj) (10/19/17 14:15) Ondansetron Inj (Zofran Inj) (10/19/17 14:15) Vancomycin Inj (Vancomycin Inj) (10/19/17 14:15) Moxifloxacin 400 Mg Premix (Avelox 400 M (10/19/17 14:15) Urine Culture (10/19/17 14:30) Vital Signs (Adult) .As directed (10/19/17 16:24) Activity Bed Rest (10/19/17 16:24) Notify Radiology (10/19/17 16:24) ^ Encourage Fluids (10/19/17 16:24) Anticoagulant Alert (10/19/17 16:24) Csf Culture And Gram Stain (10/19/17 17:29) Admit Order (Ed Use Only) (10/19/17 18:12) Labs Laboratory Tests Test 10/19/17 13:13 10/19/17 14:30 10/19/17 15:38 White Blood Count 12.5 TH/MM3 Red Blood Count 3.54 MIL/MM3 Hemoglobin 10.6 GM/DL Hematocrit 31.4 % Mean Corpuscular Volume 88.8 FL Mean Corpuscular Hemoglobin 29.8 PG Mean Corpuscular Hemoglobin Concent 33.6 % Red Cell Distribution Width 13.2 % Platelet Count 223 TH/MM3 Mean Platelet Volume 8.3 FL Neutrophils (%) (Auto) 82.5 % Lymphocytes (%) (Auto) 9.4 % Monocytes (%) (Auto) 6.0 % Eosinophils (%) (Auto) 1.1 % Basophils (%) (Auto) 1.0 % Neutrophils # (Auto) 10.3 TH/MM3 Lymphocytes # (Auto) 1.2 TH/MM3 Monocytes # (Auto) 0.8 TH/MM3 Eosinophils # (Auto) 0.1 TH/MM3 Basophils # (Auto) 0.1 TH/MM3 CBC Comment DIFF FINAL Differential Comment Blood Urea Nitrogen 8 MG/DL Creatinine 0.87 MG/DL Random Glucose 95 MG/DL Calcium Level 8.8 MG/DL Sodium Level 140 MEQ/L Potassium Level 4.0 MEQ/L Chloride Level 107 MEQ/L Carbon Dioxide Level 26.9 MEQ/L Anion Gap 6 MEQ/L Estimat Glomerular Filtration Rate 68 ML/MIN Lactic Acid Level 1.5 mmol/L Prothrombin Time 10.7 SEC Prothromb Time International Ratio 1.1 RATIO Activated Partial Thromboplast Time 27.2 SEC Urine Color YELLOW Urine Turbidity HAZY Urine pH 8.0 Urine Specific [place] 1.016 Urine Protein TRACE mg/dL Urine Glucose (UA) NEG mg/dL Urine Ketones NEG mg/dL Urine Occult Blood SMALL Urine Nitrite NEG Urine Bilirubin NEG Urine Urobilinogen LESS THAN 2.0 MG/DL Urine Leukocyte Esterase LARGE Urine RBC 43 /hpf Urine WBC 120 /hpf Urine Squamous Epithelial Cells 1 /hpf Urine Mucus FEW /lpf Microscopic Urinalysis Comment CULTURE INDICATED CSF Volume (Tube 1) 2.5 ML CSF Supernatant Color (tube 1) CLEAR CSF Gross Blood (Tube 1) 0 CSF Volume (Tube 2) 2.0 ML CSF Supernatant Color (tube 2) CLEAR CSF Gross Blood (Tube 2) 0 CSF Volume (Tube 3) 2.0 ML CSF Supernatant Color (tube 3) CLEAR CSF Gross Blood (Tube 3) 0 CSF Volume (Tube 4) 2.0 ML CSF Supernatant Color (tube 4) CLEAR CSF WBC (Tube 4) 20 /MM3 CSF RBC (Tube 4) 54 /MM3 CSF Neutrophils 0 % CSF Lymphocytes 83 % CSF Monocytes 10 % CSF Histiocytes 7 % CSF Glucose 55 MG/DL CSF Total Protein 36.3 MG/DL MDM Supervised Visit with IRENE: Yes Diagnosis Primary Impression: Sepsis Qualified Codes: A41.9 - Sepsis, unspecified organism Admitting Information Admitting Physician Requests: Admit Ashly Zazueta DO Oct 19, 2017 18:19
[2017-10-19] MEDS ORDERED: SENNOSIDES 8.6 MG TAB PO PRN (18:45)
[2017-10-19] MEDS ORDERED: SODIUM CHLORIDE 0.9% FLUSH 10 ML FLUSH IV FLUSH PRN (18:45)
[2017-10-19] MEDS ORDERED: NALOXONE HCL 0.4 MG/ML AMP IV PUSH PRN (18:45)
[2017-10-19] MEDS ORDERED: ONDANSETRON HCL 4 MG/2 ML VIAL IVP PRN (18:45)
[2017-10-19] MEDS ORDERED: LACTULOSE SYRUP 20 GM/30 ML CUP PO PRN (18:45)
[2017-10-19] MEDS ORDERED: BISACODYL 10 MG SUPP RECTAL PRN (18:45)
[2017-10-19] MEDS ORDERED: MAGNESIUM HYDROXIDE SUSP 30 ML CUP PO PRN (18:45)
[2017-10-19 18:46] VITALS: BP 101/59; PULSE 67; RESP 16; O2SAT 96
[2017-10-19 19:46] VITALS: TEMP 98.2
--- NOTE | 2017-10-19 20:05 | HHI.HP ---
HPI Service [facility] Primary Care Physician Sena Roca MD Admission Diagnosis Left lower pneumonia, UTI, r/o bacterial meningitis Diagnoses: (1) Sepsis Diagnosis: Principal (2) PNA (pneumonia) Diagnosis: Principal (3) UTI (urinary tract infection) Diagnosis: Principal Travel History International Travel<30 Days: No Contact w/Intl Traveler <30 Da: No Traveled to Known Affected Are: No History of Present Illness This is a 57-year-old female with a PMH of Depression who is referred to the ER by Dr. Roca for evaluation of fever, neck and back pain. Recent Hysterectomy 10/03/17 for right ovarian mass, cystocele and rectocele, reports doing well post-operatively. Was seen as follow up in office today and relayed neck/back pain and fever, referred to ER for concern for meningitis. No c/o headache, no nausea/vomiting, no vision changes. States told she was Strep + in office and given Rx for Azithromycin, however has not started it. On arrival , BP 125/64, HR 88, O2 sat 97% on RA, Temp 101.4. Group A Strep negative . Flu negative. WBC 12.5. Chemistry essentially unremarkable. Lactic Acid 1.5. INR 1.1. UA positive for UTI. CXR with patchy infiltrates left lower and left middle lung. S/p LP by IR, preliminary results negative. S/p Avelox and Vanc IV in ER. Review of Systems Except as stated in HPI: all other systems reviewed are Neg ROS: 14 point review of systems otherwise negative. Past Family Social History Past Medical History PMH: Depression Past Surgical History PAST SURGICAL HISTORY: Cholecystectomy, Hysterectomy, Tonsillectomy, [place] Teeth Removal Allergies: Coded Allergies: Penicillins (Verified Allergy, Severe, Shortness of Breath, 09/26/17) sulfacetamide (Verified Adverse Reaction, Severe, Nausea/Vomiting, 09/26/17 ) Family History PAST FAMILY HISTORY: Reviewed. No h/o DM or CAD Social History PAST SOCIAL HISTORY: Occasional alcohol. Negative for tobacco or drugs. Physical Exam Vital Signs Vital Signs Date Time Temp Pulse Resp B/P (MAP) Pulse Ox O2 Delivery O2 Flow Rate FiO2 10/19/17 19:46 98.2 10/19/17 18:46 67 16 101/59 (73) 96 Room Air 10/19/17 14:51 82 18 116/53 (74) 93 Room Air 10/19/17 12:41 101.4 88 20 125/64 (84) 97 Physical Exam PE: GENERAL: Pleasant middle-aged white female in no acute distress. HEENT: PERRLA, EOMI. No scleral icterus or conjunctival pallor. No lid lag or facial droop. CARDIOVASCULAR: Regular rate and rhythm. No obvious murmurs to auscultation. No chest tenderness to palpation. RESPIRATORY: No obvious rhonchi or wheezing. Clear to auscultation. Breath sounds equal bilaterally. GASTROINTESTINAL: Abdomen soft, non-tender, nondistended. BS normal. MUSCULOSKELETAL: Extremities without clubbing, cyanosis, or edema. No obvious deformities. Full ROM of neck, mild pain w/ flexion/extension. NEUROLOGICAL: Awake, alert and oriented x4. No focal neurologic deficits. Moving both upper and lower extremities spontaneously. Laboratory Laboratory Tests Test 10/19/17 13:13 10/19/17 14:30 10/19/17 15:38 White Blood Count 12.5 Red Blood Count 3.54 Hemoglobin 10.6 Hematocrit 31.4 Mean Corpuscular Volume 88.8 Mean Corpuscular Hemoglobin 29.8 Mean Corpuscular Hemoglobin Concent 33.6 Red Cell Distribution Width 13.2 Platelet Count 223 Mean Platelet Volume 8.3 Neutrophils (%) (Auto) 82.5 Lymphocytes (%) (Auto) 9.4 Monocytes (%) (Auto) 6.0 Eosinophils (%) (Auto) 1.1 Basophils (%) (Auto) 1.0 Neutrophils # (Auto) 10.3 Lymphocytes # (Auto) 1.2 Monocytes # (Auto) 0.8 Eosinophils # (Auto) 0.1 Basophils # (Auto) 0.1 CBC Comment DIFF FINAL Differential Comment Blood Urea Nitrogen 8 Creatinine 0.87 Random Glucose 95 Calcium Level 8.8 Sodium Level 140 Potassium Level 4.0 Chloride Level 107 Carbon Dioxide Level 26.9 Anion Gap 6 Estimat Glomerular Filtration Rate 68 Lactic Acid Level 1.5 Prothrombin Time 10.7 Prothromb Time International Ratio 1.1 Activated Partial Thromboplast Time 27.2 Urine Color YELLOW Urine Turbidity HAZY Urine pH 8.0 Urine Specific [place] 1.016 Urine Protein TRACE Urine Glucose (UA) NEG Urine Ketones NEG Urine Occult Blood SMALL Urine Nitrite NEG Urine Bilirubin NEG Urine Urobilinogen LESS THAN 2.0 Urine Leukocyte Esterase LARGE Urine RBC 43 Urine WBC 120 Urine Squamous Epithelial Cells 1 Urine Mucus FEW Microscopic Urinalysis Comment CULTURE INDICATED CSF Volume (Tube 1) 2.5 CSF Supernatant Color (tube 1) CLEAR CSF Gross Blood (Tube 1) 0 CSF Volume (Tube 2) 2.0 CSF Supernatant Color (tube 2) CLEAR CSF Gross Blood (Tube 2) 0 CSF Volume (Tube 3) 2.0 CSF Supernatant Color (tube 3) CLEAR CSF Gross Blood (Tube 3) 0 CSF Volume (Tube 4) 2.0 CSF Supernatant Color (tube 4) CLEAR CSF WBC (Tube 4) 20 CSF RBC (Tube 4) 54 CSF Neutrophils 0 CSF Lymphocytes 83 CSF Monocytes 10 CSF Histiocytes 7 CSF Glucose 55 CSF Total Protein 36.3 Date/Time Source Procedure Growth Status 10/19/17 13:14 Blood Peripheral Aerobic Blood Culture Pending Received 10/19/17 13:14 Blood Peripheral Anaerobic Blood Culture Pending Received 10/19/17 15:38 Cerebral Spinal Fluid Lumbar Puncture Gram Stain - Final Resulted 10/19/17 15:38 Cerebral Spinal Fluid Lumbar Puncture CSF Culture Pending Resulted 10/19/17 13:15 Throat Group A Streptococcus Screen Pending Received 10/19/17 14:30 Urine Clean Catch Urine Culture Pending Received Result Diagram: 10/19/17 1313 10/19/17 1313 Caprini VTE Risk Assessment Caprini VTE Risk Assessment: No/Low Risk (score <= 1) Caprini Risk Assessment Model Point Value = 1 Point Value = 2 Point Value = 3 Point Value = 5 Age 41-60 Minor surgery BMI > 25 kg/m2 Swollen legs Varicose veins or History of unexplained or recurrent spontaneous Oral contraceptives or hormone replacement Sepsis (< 1 month) Serious lung disease, including pneumonia (< 1 month) Abnormal pulmonary function Acute myocardial infarction Congestive heart failure (< 1 month) History of inflammatory bowel disease Medical patient at bed rest Age 61-74 Arthroscopic surgery Major open surgery (> 45 min) Laparoscopic surgery (> 45 min) Malignancy Confined to bed (> 72 hours) Immobilizing plaster cast Central venous access Age >= 75 History of VTE Family history of VTE Factor V Leiden Prothrombin [id number] Lupus anticoagulant Anticardiolipin antibodies Elevated serum homocysteine Heparin-induced thrombocytopenia Other congenital or acquired thrombophilia Stroke (< 1 month) Elective arthroplasty Hip, pelvis, or leg fracture Acute spinal cord injury (< 1 month) Prophylaxis Regimen Total Risk Factor Score Risk Level Prophylaxis Regimen 0-1 Low Early ambulation 2 Moderate Order ONE of the following: *Sequential Compression Device (SCD) *Heparin 5000 units SQ BID 3-4 Higher Order ONE of the following medications: *Heparin 5000 units SQ TID *Enoxaparin/Lovenox 40 mg SQ daily (WT < 150 kg, CrCl > 30 mL/min) *Enoxaparin/Lovenox 30 mg SQ daily (WT < 150 kg, CrCl > 10-29 mL/min) *Enoxaparin/Lovenox 30 mg SQ BID (WT < 150 kg, CrCl > 30 mL/min) AND/OR *Sequential Compression Device (SCD) 5 or more Highest Order ONE of the following medications: *Heparin 5000 units SQ TID (Preferred with Epidurals) *Enoxaparin/Lovenox 40 mg SQ daily (WT < 150 kg, CrCl > 30 mL/min) *Enoxaparin/Lovenox 30 mg SQ daily (WT < 150 kg, CrCl > 10-29 mL/min) *Enoxaparin/Lovenox 30 mg SQ BID (WT < 150 kg, CrCl > 30 mL/min) AND *Sequential Compression Device (SCD) Assessment and Plan Problem List: (1) Sepsis ICD Code: A41.9 - Sepsis, unspecified organism (2) UTI (urinary tract infection) ICD Code: N39.0 - Urinary tract infection, site not specified Status: Acute (3) PNA (pneumonia) ICD Code: J18.9 - Pneumonia, unspecified organism Assessment and Plan A/P: 1. Sepsis: Temp 101.4, WBC 12.5, Source-UTI/PNA, states told she was Strep + in [employer] office, however Group A negative 10/19/17 per review of results. Flu Negative. Concern for meningitis in light of neck/back pain, s/p LP by IR, preliminary results negative, improved ROM of neck, s/p Vanc/Avelox in ER, continue w/ IV Abx, IVF for hydration. Consult ID as needed for further evaluation. 2. PNA: CXR w/ left lower and left mid lung infiltrates, images reviewed by me. Continue w/ IV Abx, DuoNeb prn, Symbicort. 3. UTI: U/a w/ UTI, IVF for hydration, follow up cultures, continue IV Abx 4. DVT Prophylaxis: SCDs/teds. 5. Social work for DC planning as needed. 6. Case discussed at length with the ER physician, lab/record/imaging reviewed by me. Physician Certification 2 Midnight Certification Type: Admission for Inpatient Services Order for Inpatient Services The services are ordered in accordance with Medicare regulations or non- Medicare payer requirements, as applicable. In the case of services not specified as inpatient-only, they are appropriately provided as inpatient services in accordance with the 2-midnight benchmark. Estimated LOS (days): 2 days is the estimated time the patient will need to remain in the hospital, assuming treatment plan goals are met and no additional complications. Post-Hospital Plan: Not yet determined Problem Qualifiers (1) UTI (urinary tract infection): Qualified Codes: N30.00 - Acute cystitis without hematuria Ness Kapoor MD Oct 19, 2017 20:05
[2017-10-19] MEDS ORDERED: Vancomycin Consult Pharmacy 1 EA OTHER SCH (20:15)
[2017-10-19] MEDS ORDERED: ACETAMINOPHEN 325 MG TAB PO PRN (20:15)
[2017-10-19] MEDS ORDERED: RESP: ALBUTEROL 2.5 MG/IPRATROPIUM 0.5 MG NEB (PRN) NEB (20:15)
[2017-10-19] MEDS ORDERED: VANCOMYCIN 1,500 MG/NS 500 ML IV ONE ×2 (21:00)
[2017-10-19] MEDS: SODIUM CHLORIDE 0.9% FLUSH 10 ML FLUSH IV FLUSH SCH (21:00)
[2017-10-19] MEDS: DOCUSATE SODIUM 50 MG/SENNA 8.6 MG TAB PO SCH (21:00)
[2017-10-19] MEDS: BUDESONIDE-FORMOTEROL 160/4.5 MCG INHALER INH SCH (21:52)
[2017-10-19 21:53] VITALS: BP 115/60; PULSE 72; RESP 16; O2SAT 98
[2017-10-19] MEDS: ACETAMINOPHEN/HYDROcodone 325 MG/10 MG TAB PO PRN (22:02)
[2017-10-19] MEDS: AZTREONAM INJ 1,000 MG in SODIUM CHLORIDE 0.9% INJ 100 ML IV SCH (22:17)
[2017-10-20] VITALS: BP 112/62; PULSE 76; RESP 16; TEMP 98; O2SAT 97
[2017-10-20 05:44] VITALS: BP 108/66; PULSE 80; RESP 16; TEMP 98.2; O2SAT 97
[2017-10-20] MEDS: LEVOTHYROXINE SODIUM 125 MCG TAB PO SCH (05:54)
[2017-10-20] MEDS: ACETAMINOPHEN/HYDROcodone 325 MG/10 MG TAB PO PRN ×2 (05:57→12:00)
[2017-10-20] MEDS: AZTREONAM INJ 1,000 MG in SODIUM CHLORIDE 0.9% INJ 100 ML IV SCH ×3 (06:12→19:44)
--- NOTE | 2017-10-20 07:55 | HHI.PR ---
Subjective Remarks in no acute distress. Tmax 101.4. still with some neck pain but better than last night. Objective Vitals Vital Signs Date Time Temp Pulse Resp B/P (MAP) Pulse Ox O2 Delivery O2 Flow Rate FiO2 10/20/17 05:44 98.2 80 16 108/66 (80) 97 Room Air 10/20/17 04:43 20 10/20/17 04:11 20 10/20/17 00:00 98.0 76 16 112/62 (79) 97 Room Air 10/19/17 21:53 72 16 115/60 (78) 98 Room Air 10/19/17 19:46 98.2 10/19/17 19:30 16 10/19/17 18:46 67 16 101/59 (73) 96 Room Air 10/19/17 14:51 82 18 116/53 (74) 93 Room Air 10/19/17 12:41 101.4 88 20 125/64 (84) 97 I/O 10/19/17 10/19/17 10/19/17 10/20/17 10/20/17 10/20/17 07:00 15:00 23:00 07:00 15:00 23:00 Intake Total 2500 ml Balance 2500 ml Intake IV Total 2500 ml Result Diagram: 10/19/17 1313 10/19/17 1313 Imaging Last Impressions Lumbar Puncture Fluoroscopy 10/19/17 0000 Signed Impressions: Service Date/Time: Thursday, October 19, 2017 15:38 - CONCLUSION: Uncomplicated fluoroscopically guided lumbar puncture with pressures as above. William Trujillo MD Chest X-Ray 10/19/17 0000 Signed Impressions: Service Date/Time: Thursday, October 19, 2017 13:32 - CONCLUSION: 1. Patchy infiltrates left lung. Medical treatment and followup to resolution using serial radiographs. Weston Elaine MD Objective Remarks GENERAL: This is a well-nourished, well-developed patient, in no apparent distress. Neck; with some neck stiffness CARDIOVASCULAR: Regular rate and regular rhythm without murmurs, gallops, or rubs. RESPIRATORY: Clear to auscultation. Breath sounds equal bilaterally. No wheezes , rales, or rhonchi. GASTROINTESTINAL: Abdomen soft, non-tender, nondistended. Normal, active bowel sounds MUSCULOSKELETAL: Extremities without clubbing, cyanosis, or edema. NEURO: Alert & Oriented x4 to person, place, time, situation. Moves all ext x4 Medications and IVs Inpatient Medications Acetaminophen (Tylenol) 650 mg Q4H PRN PO FEVER; Start 10/19/17 at 20:15 Acetaminophen/ Hydrocodone Bitart ([place] 5-325 Mg) 1 tab Q4H PRN PO PAIN 1-5; Start 10/19/17 at 20:15 Acetaminophen/ Hydrocodone Bitart ([place] 10-325 Mg) 1 tab Q4H PRN PO PAIN 6-10 Last administered on 10/20/17at 05:57; Start 10/19/17 at 20:15 Albuterol/ Ipratropium (Duoneb Neb) 1 ampule Q4HR NEB PRN NEB SOB/WHEEZING; Start 10/19/17 at 20:15 Aztreonam 1000 mg/ Sodium Chloride 100 ml @ 200 mls/hr Q8H IV Last administered on 10/20/17at 06:12; Start 10/19/17 at 22:00 Bisacodyl (Dulcolax Supp) 10 mg DAILY PRN RECTAL SEVERE CONSITIPATION; Start at 18:45 Budesonide/ Formoterol Fumarate (Symbicort 160-4.5 Mcg Inh) 2 puff Q12HR INH Last administered on 10/19/17at 21:52; Start 10/19/17 at 21:00 Fluoxetine HCl (PROzac) 20 mg DAILY PO ; Start 10/20/17 at 09:00 Lactulose (Lactulose Liq) 30 ml DAILY PRN PO SEVERE CONSITIPATION; Start at 18:45 Levothyroxine Sodium (Synthroid) 125 mcg DAILY@0600 PO Last administered on at 05:54; Start 10/20/17 at 06:00 Magnesium Hydroxide (Milk Of Magnesia Liq) 30 ml Q12H PRN PO Mild constipation ; Start 10/19/17 at 18:45 Miscellaneous Information SPECIFIC LAB TO BE ... ONCE ONCE .XX ; Start 10/21 at 09:45; Stop 10/21/17 at 09:46 Morphine Sulfate (Morphine Inj) 4 mg ONCE ONCE IV PUSH Last administered on at 14:36; Start 10/19/17 at 14:15; Stop 10/19/17 at 14:16; Status DC Moxifloxacin HCl 250 ml @ 250 mls/hr ONCE ONCE IV Last administered on at 14:38; Start 10/19/17 at 14:15; Stop 10/19/17 at 15:14; Status DC Naloxone HCl (Narcan Inj) 0.4 mg UNSCH PRN IV PUSH SEE LABEL COMMENTS; Start at 18:45 Ondansetron HCl (Zofran Inj) 4 mg Q6H PRN IVP NAUSEA OR VOMITING; Start at 18:45 Pharmacy Profile Note 0 ml @ 0 mls/hr UNSCH OTHER ; Start 10/19/17 at 20:15 Senna/Docusate Sodium (Lela-Colace) 1 tab BID PO ; Start 10/19/17 at 21:00 Sennosides (Senokot) 17.2 mg Q12H PRN PO Moderate constipation; Start 10/19/17 at 18:45 Sodium Chloride (NS Flush) 2 ml BID IV FLUSH Last administered on 10/19/17at 21: 00; Start 10/19/17 at 21:00 Vancomycin HCl 1000 mg/Sodium Chloride 250 ml @ 250 mls/hr ONCE ONCE IV Last administered on 10/19/17at 16:22; Start 10/19/17 at 14:15; Stop 10/19/17 at 15:14 ; Status DC Vancomycin HCl 1500 mg/Sodium Chloride 515 ml @ 257.5 mls/ hr Q12H IV ; Start 10/20/17 at 10:00 A/P Problem List: (1) Sepsis ICD Code: A41.9 - Sepsis, unspecified organism (2) UTI (urinary tract infection) ICD Code: N39.0 - Urinary tract infection, site not specified Status: Acute (3) PNA (pneumonia) ICD Code: J18.9 - Pneumonia, unspecified organism Assessment and Plan 1. Sepsis- pneumonia: Temp 101.4, WBC 12.5. s/p LP with CSF pleocytosis/ gram stain negative- will continue with IV antibiotics and follow the cultures and consult ID. 2. PNA: CXR w/ left lower and left mid lung infiltrates. Continue w/ IV Abx, DuoNeb prn, Symbicort. 3. UTI: U/a w/ UTI, IVF for hydration, follow up cultures, continue IV Abx 4. DVT Prophylaxis: SCDs/teds. Problem Qualifiers (1) UTI (urinary tract infection): Qualified Codes: N30.00 - Acute cystitis without hematuria Yaima Seanz MD Oct 20, 2017 07:55
[2017-10-20 08:25] VITALS: BP 114/64; PULSE 63; RESP 18; TEMP 98; O2SAT 95
[2017-10-20] MEDS: BUDESONIDE-FORMOTEROL 160/4.5 MCG INHALER INH SCH ×2 (09:00→23:15)
[2017-10-20] MEDS: SODIUM CHLORIDE 0.9% FLUSH 10 ML FLUSH IV FLUSH SCH ×2 (09:00→21:25)
[2017-10-20] MEDS: DOCUSATE SODIUM 50 MG/SENNA 8.6 MG TAB PO SCH ×2 (09:00→21:23)
[2017-10-20 09:52] LABS: AUTOMATED NEUTROPHIL # 5.1 TH/MM3 (1.8-7.7); BASOPHIL # 0.1 TH/MM3 (0-0.2); BASOPHIL % 0.6 % (0.0-2.0); EOSINOPHIL # 1.4 TH/MM3 (0-0.4); EOSINOPHIL % 16.7 % (0.0-4.0); HEMATOCRIT 27.4 % (35.0-46.0); HEMOGLOBIN 9.2 GM/DL (11.6-15.3); LYMPH % 17.1 % (9.0-44.0); LYMPHOCYTE # 1.5 TH/MM3 (1.0-4.8); MEAN CELL VOLUME 90.3 FL (80.0-100.0); MEAN CORPUSCULAR HEMOGLOBIN 30.4 PG (27.0-34.0); MEAN CORPUSCULAR HGB CONC 33.7 % (32.0-36.0); MEAN PLATELET VOLUME 8.2 FL (7.0-11.0); MONO % 7.1 % (0.0-8.0); MONOCYTE # 0.6 TH/MM3 (0-0.9); NEUT % 58.5 % (16.0-70.0); PLATELET COUNT 174 TH/MM3 (150-450); RED BLOOD COUNT 3.03 MIL/MM3 (4.00-5.30); RED CELL DISTRIBUTION WIDTH 13.5 % (11.6-17.2); WHITE BLOOD COUNT 8.7 TH/MM3 (4.0-11.0)
[2017-10-20 10:12] LABS: BICARBONATE 25.4 MEQ/L (21.0-32.0); CALCIUM 8.5 MG/DL (8.5-10.1); CREATININE 0.77 MG/DL (0.50-1.00)
[2017-10-20 12:00] VITALS: BP 102/58; PULSE 66; RESP 16; TEMP 98.4; O2SAT 96
[2017-10-20] MEDS: VANCOMYCIN 1,500 MG/NS 500 ML IV SCH ×4 (12:05→21:27)
--- NOTE | 2017-10-20 13:08 | PD.CONS ---
History of Present Illness Service Infectious disease Consult Requested By Dr Saenz Reason for Consult Evaluate patient with fever Primary Care Physician Sena Roca MD Diagnoses: History of Present Illness Patient seen and examined. Records reviewed. Patient is a 57-year-old female, presented to the hospital complaining of 2 day history of fever. She also has been having some mild cough and would bring up some whitish phlegm. Patient recently had a vaginal hysterectomy about 3 weeks ago. According to the patient even prior to her hysterectomy, she has been experiencing suprapubic fullness and discomfort as well as some difficulty initiating her urination. She stated that she has had her urine tested, but has not been told that he was abnormal. Her urinary complain is still present. Patient also has had some neck and radiates anteriorly to her head. NO photophobia. During the start of her urinary problem, she has not had any fevers. Patient denies any chest pain or any shortness of breath. She has not had any nausea or vomiting or any diarrhea. Patient lives with her , and has not been exposed to anyone sick. They have 2 dogs at home. She has not had any recent travel. On admission her WBC was elevated. She has had some fevers. Chest x-ray showing some patchy infiltrates on the left side. Her urinalysis is showing pyuria. Infectious disease consultation has been requested to evaluate the patient. Review of Systems Constitutional: COMPLAINS OF: Fatigue, Fever, Chills Eyes: DENIES: Eye pain Ears, nose, mouth, throat: DENIES: Nasal discharge, Oral lesions, Throat pain, Hoarseness, Ear Pain, Sinus Pain Respiratory: COMPLAINS OF: Cough, Sputum production, DENIES: Hemoptysis, Shortness of breath Cardiovascular: DENIES: Chest pain, Palpitations, Syncope, Dyspnea on Exertion Gastrointestinal: COMPLAINS OF: Abdominal pain, DENIES: Diarrhea, Nausea, Vomiting, Difficulty Swallowing Genitourinary: COMPLAINS OF: Urinary frequency, Urgency Musculoskeletal: COMPLAINS OF: Neck pain, DENIES: Joint pain, Joint Swelling Integumentary: DENIES: Rash Hematologic/lymphatic: DENIES: Lymphadenopathy Immunologic/allergic: DENIES: Urticaria Neurologic: COMPLAINS OF: Headache, DENIES: Localized weakness Psychiatric: DENIES: Hallucinations Past Family Social History Allergies: Coded Allergies: Penicillins (Verified Allergy, Severe, Shortness of Breath, 09/26/17) sulfacetamide (Verified Adverse Reaction, Severe, Nausea/Vomiting, 09/26/17 ) Past Medical History Depression Past Surgical History Cholecystectomy Vaginal Hysterectomy Tonsillectomy [place] Teeth Removal Active Ordered Medications Current Medications Medications (Trade) Dose Ordered Sig/Pearl Route Start Time Stop Time Status Last Admin (NS Flush) 2 ml UNSCH PRN IV FLUSH 10/19/17 18:45 (NS Flush) 2 ml BID IV FLUSH 10/19/17 21:00 10/19/17 21:00 (Zofran Inj) 4 mg Q6H PRN IVP 10/19/17 18:45 (Narcan Inj) 0.4 mg UNSCH PRN IV PUSH 10/19/17 18:45 (Lela-Colace) 1 tab BID PO 10/19/17 21:00 (Milk Of Magnesia Liq) 30 ml Q12H PRN PO 10/19/17 18:45 (Senokot) 17.2 mg Q12H PRN PO 10/19/17 18:45 (Dulcolax Supp) 10 mg DAILY PRN RECTAL 10/19/17 18:45 (Lactulose Liq) 30 ml DAILY PRN PO 10/19/17 18:45 Pharmacy Profile Note 0 ml @ 0 mls/hr UNSCH OTHER 10/19/17 20:15 Aztreonam 1000 mg/ Sodium Chloride 100 ml @ 200 mls/hr Q8H IV 10/19/17 22:00 10/20/17 06:12 ([place] 5-325 Mg) 1 tab Q4H PRN PO 10/19/17 20:15 ([place] 10-325 Mg) 1 tab Q4H PRN PO 10/19/17 20:15 10/20/17 12:00 (Tylenol) 650 mg Q4H PRN PO 10/19/17 20:15 (Duoneb Neb) 1 ampule Q4HR NEB PRN NEB 10/19/17 20:15 (Symbicort 160-4.5 Mcg Inh) 2 puff Q12HR INH 10/19/17 21:00 10/19/17 21:52 (PROzac) 20 mg DAILY PO 10/20/17 09:00 (Synthroid) 125 mcg DAILY@0600 PO 10/20/17 06:00 10/20/17 05:54 Vancomycin HCl 1500 mg/Sodium Chloride 515 ml @ 257.5 mls/ hr Q12H IV 10/20/17 10:00 10/20/17 12:05 Miscellaneous Information SPECIFIC LAB TO BE ... ONCE ONCE .XX 10/21/17 09:45 10/21/17 09:46 Family History Unremarkable Social History Occasional alcohol. Negative for tobacco or drugs. Physical Exam Vital Signs Vital Signs Date Time Temp Pulse Resp B/P (MAP) Pulse Ox O2 Delivery O2 Flow Rate FiO2 10/20/17 08:25 98.0 63 18 114/64 (81) 95 10/20/17 08:14 10/20/17 05:44 98.2 80 16 108/66 (80) 97 Room Air 10/20/17 04:43 20 10/20/17 04:11 20 10/20/17 00:00 98.0 76 16 112/62 (79) 97 Room Air 10/19/17 21:53 72 16 115/60 (78) 98 Room Air 10/19/17 19:46 98.2 10/19/17 19:30 16 10/19/17 18:46 67 16 101/59 (73) 96 Room Air 10/19/17 14:51 82 18 116/53 (74) 93 Room Air Physical Exam GENERAL: Patient is a well-nourished, well-developed female, awake and alert , not in respiratory distress. SKIN: Warm and dry. No generalized rash, no ecchymoses and no evidence of embolic lesions. HEAD: Atraumatic. Normocephalic. No temporal wasting, or tenderness. EYES: [place] conjunctiva. No petechia or hemorrhage. Pupils equal, round and reactive to light. Extraocular movements full and intact. No scleral icterus. No injection or drainage. EARS, NOSE AND THROAT: Nose without bleeding or purulent nasal discharge. No sinus tenderness. Mucous membranes pink and moist. No oral lesions noted. No exudate. No oral thrush. NECK: Trachea midline. Supple and not tender, no meningeal signs. No nuchal rigidity CARDIOVASCULAR: Regular rate and rhythm. No murmurs, rubs or gallops heard RESPIRATORY: Clear to auscultation. Breath sounds equal bilaterally. No rales , wheezing or rhonchi ABDOMEN: Soft, nondistended. Has very mild suprapubic tenderness. Bowel sounds present and normoactive. No guarding. No rebound. No organomegaly. EXTREMITIES: No clubbing, cyanosis, or edema.No joint effusion, has good ROM. No calf tenderness. Well perfused and warm. NEUROLOGICAL: Awake and alert. Cranial nerves grossly intact. Motor grossly within normal limits. PSYCHIATRIC: Normal affect, calm and cooperative. LINE: No evidence of infection Laboratory Laboratory Tests Test 10/19/17 13:13 10/19/17 14:30 10/19/17 15:38 10/20/17 09:22 White Blood Count 12.5 8.7 Red Blood Count 3.54 3.03 Hemoglobin 10.6 9.2 Hematocrit 31.4 27.4 Mean Corpuscular Volume 88.8 90.3 Mean Corpuscular Hemoglobin 29.8 30.4 Mean Corpuscular Hemoglobin Concent 33.6 33.7 Red Cell Distribution Width 13.2 13.5 Platelet Count 223 174 Mean Platelet Volume 8.3 8.2 Neutrophils (%) (Auto) 82.5 58.5 Lymphocytes (%) (Auto) 9.4 17.1 Monocytes (%) (Auto) 6.0 7.1 Eosinophils (%) (Auto) 1.1 16.7 Basophils (%) (Auto) 1.0 0.6 Neutrophils # (Auto) 10.3 5.1 Lymphocytes # (Auto) 1.2 1.5 Monocytes # (Auto) 0.8 0.6 Eosinophils # (Auto) 0.1 1.4 Basophils # (Auto) 0.1 0.1 CBC Comment DIFF FINAL DIFF FINAL Differential Comment Blood Urea Nitrogen 8 8 Creatinine 0.87 0.77 Random Glucose 95 88 Calcium Level 8.8 8.5 Sodium Level 140 142 Potassium Level 4.0 4.0 Chloride Level 107 112 Carbon Dioxide Level 26.9 25.4 Anion Gap 6 5 Estimat Glomerular Filtration Rate 68 78 Lactic Acid Level 1.5 Prothrombin Time 10.7 Prothromb Time International Ratio 1.1 Activated Partial Thromboplast Time 27.2 Urine Color YELLOW Urine Turbidity HAZY Urine pH 8.0 Urine Specific [place] 1.016 Urine Protein TRACE Urine Glucose (UA) NEG Urine Ketones NEG Urine Occult Blood SMALL Urine Nitrite NEG Urine Bilirubin NEG Urine Urobilinogen LESS THAN 2.0 Urine Leukocyte Esterase LARGE Urine RBC 43 Urine WBC 120 Urine Squamous Epithelial Cells 1 Urine Mucus FEW Microscopic Urinalysis Comment CULTURE INDICATED CSF Volume (Tube 1) 2.5 CSF Supernatant Color (tube 1) CLEAR CSF Gross Blood (Tube 1) 0 CSF Volume (Tube 2) 2.0 CSF Supernatant Color (tube 2) CLEAR CSF Gross Blood (Tube 2) 0 CSF Volume (Tube 3) 2.0 CSF Supernatant Color (tube 3) CLEAR CSF Gross Blood (Tube 3) 0 CSF Volume (Tube 4) 2.0 CSF Supernatant Color (tube 4) CLEAR CSF WBC (Tube 4) 20 CSF RBC (Tube 4) 54 CSF Neutrophils 0 CSF Lymphocytes 83 CSF Monocytes 10 CSF Histiocytes 7 CSF Glucose 55 CSF Total Protein 36.3 Date/Time Source Procedure Growth Status 10/19/17 13:14 Blood Peripheral Aerobic Blood Culture - Preliminary NO GROWTH IN 1 DAY Resulted 10/19/17 13:14 Blood Peripheral Anaerobic Blood Culture - Preliminary NO GROWTH IN 1 DAY Resulted 10/19/17 15:38 Cerebral Spinal Fluid Lumbar Puncture Gram Stain - Final Resulted 10/19/17 15:38 Cerebral Spinal Fluid Lumbar Puncture CSF Culture - Preliminary NO GROWTH IN 24 HOURS. Resulted 10/19/17 13:15 Throat Group A Streptococcus Screen Pending Received 10/19/17 14:30 Urine Clean Catch Urine Culture Pending Received Result Diagram: 10/20/17 0922 10/20/17 0922 Imaging RADIOLOGY STUDIES/FILMS REVIEWED Lumbar Puncture Fluoroscopy 10/19/17 0000 Signed Impressions: Service Date/Time: Thursday, October 19, 2017 15:38 - CONCLUSION: Uncomplicated fluoroscopically guided lumbar puncture with pressures as above. William Trujillo MD Chest X-Ray 10/19/17 0000 Signed Impressions: Service Date/Time: Thursday, October 19, 2017 13:32 - CONCLUSION: 1. Patchy infiltrates left lung. Medical treatment and followup to resolution using serial radiographs. Weston Elaine MD Assessment and Plan Assessment and Plan IMPRESSION Febrile illness, possible sepsis, likely due to PNA - also with UTI CAP UTI S/P vaginal hysterectomy Allergy to PCN has tolerated Ancef RECOMMENDATION Check urine for Legionella and pneumococcal antigen Check respiratory panel adult Sputum culture Follow cultures, blood urine and sputum Agree with current empiric antibiotics, she is on vancomycin and Azactam -This will cover pneumonia and UTI Will add Zithromax for atypical coverage for the pneumonia Follow cultures and adjust antibiotics accordingly Follow temp Monitor clinical progress I will determine course of treatment once workup is completed I will follow along with you Thank you for this consultation Discussed Condition With Explained plan to the patient Carrie Golden MD Oct 20, 2017 13:08
[2017-10-20 16:30] VITALS: BP 128/73; PULSE 70; RESP 16; TEMP 98.5; O2SAT 100
[2017-10-20] MEDS: AZITHROMYCIN 250 MG TAB PO SCH (17:26)
[2017-10-20] MEDS: FLUoxetine HCL 20 MG CAP PO SCH (17:26)
[2017-10-20] MEDS: ACETAMINOPHEN/HYDROcodone 325 MG/5 MG TAB PO PRN ×2 (17:29→21:24)
[2017-10-20 20:00] VITALS: BP 137/72; PULSE 73; RESP 20; TEMP 98.5; O2SAT 99
[2017-10-21] VITALS: BP 110/60; PULSE 70; RESP 20; TEMP 98.6; O2SAT 96
[2017-10-21] MEDS: ACETAMINOPHEN/HYDROcodone 325 MG/10 MG TAB PO PRN ×2 (03:09→14:16)
[2017-10-21] MEDS: LEVOTHYROXINE SODIUM 125 MCG TAB PO SCH (05:05)
[2017-10-21] MEDS: AZTREONAM INJ 1,000 MG in SODIUM CHLORIDE 0.9% INJ 100 ML IV SCH ×2 (05:07→13:51)
[2017-10-21 05:09] VITALS: BP 103/64; PULSE 69; RESP 18; TEMP 98.3; O2SAT 95
[2017-10-21 08:00] VITALS: BP 130/68; PULSE 66; RESP 20; TEMP 98.2; O2SAT 96
[2017-10-21] MEDS: SODIUM CHLORIDE 0.9% FLUSH 10 ML FLUSH IV FLUSH SCH (08:56)
[2017-10-21] MEDS: BUDESONIDE-FORMOTEROL 160/4.5 MCG INHALER INH SCH (08:56)
[2017-10-21] MEDS: DOCUSATE SODIUM 50 MG/SENNA 8.6 MG TAB PO SCH (08:56)
[2017-10-21] MEDS: FLUoxetine HCL 20 MG CAP PO SCH (08:57)
[2017-10-21] MEDS: AZITHROMYCIN 250 MG TAB PO SCH (08:57)
[2017-10-21] MEDS ORDERED: PHARMACY ORDERED LAB ONE (09:45)
[2017-10-21] MEDS: VANCOMYCIN 1,500 MG/NS 500 ML IV SCH ×2 (10:16)
[2017-10-21 11:52] VITALS: BP 128/62; PULSE 70; RESP 20; TEMP 97.9; O2SAT 98
--- NOTE | 2017-10-21 12:00 | HHI.PR ---
Subjective Remarks in no acute distress. looks and feels much better today. no fever or sob. headache has resolved. Objective Vitals Vital Signs Date Time Temp Pulse Resp B/P (MAP) Pulse Ox O2 Delivery O2 Flow Rate FiO2 10/21/17 11:52 97.9 70 20 128/62 (84) 98 10/21/17 08:00 98.2 66 20 130/68 (88) 96 10/21/17 05:09 98.3 69 18 103/64 (77) 95 10/21/17 00:00 98.6 70 20 110/60 (77) 96 10/20/17 20:00 98.5 73 20 137/72 (93) 99 10/20/17 16:30 98.5 70 16 128/73 (91) 100 10/20/17 12:00 98.4 66 16 102/58 (73) 96 I/O 10/20/17 10/20/17 10/20/17 10/21/17 10/21/17 10/21/17 07:00 15:00 23:00 07:00 15:00 23:00 Intake Total 100 ml 500 ml 600 ml 960 ml Balance 100 ml 500 ml 600 ml 960 ml Intake Oral 960 ml IV Total 100 ml 500 ml 600 ml # Voids 9 Result Diagram: 10/20/1722 10/20/17921 Imaging Last Impressions Lumbar Puncture Fluoroscopy 10/19/17 0000 Signed Impressions: Service Date/Time: Thursday, October 19, 2017 15:38 - CONCLUSION: Uncomplicated fluoroscopically guided lumbar puncture with pressures as above. William Trujillo MD Chest X-Ray 10/19/17 0000 Signed Impressions: Service Date/Time: Thursday, October 19, 2017 13:32 - CONCLUSION: 1. Patchy infiltrates left lung. Medical treatment and followup to resolution using serial radiographs. Weston Elaine MD Objective Remarks GENERAL: This is a well-nourished, well-developed patient, in no apparent distress. Neck; with some neck stiffness CARDIOVASCULAR: Regular rate and regular rhythm without murmurs, gallops, or rubs. RESPIRATORY: Clear to auscultation. Breath sounds equal bilaterally. No wheezes , rales, or rhonchi. GASTROINTESTINAL: Abdomen soft, non-tender, nondistended. Normal, active bowel sounds MUSCULOSKELETAL: Extremities without clubbing, cyanosis, or edema. NEURO: Alert & Oriented x4 to person, place, time, situation. Moves all ext x4 Medications and IVs Inpatient Medications Acetaminophen (Tylenol) 650 mg Q4H PRN PO FEVER; Start 10/19/17 at 20:15 Acetaminophen/ Hydrocodone Bitart ([place] 5-325 Mg) 1 tab Q4H PRN PO PAIN 1-5 Last administered on 10/20/17at 21:24; Start 10/19/17 at 20:15 Acetaminophen/ Hydrocodone Bitart ([place] 10-325 Mg) 1 tab Q4H PRN PO PAIN 6-10 Last administered on 10/21/17at 03:09; Start 10/19/17 at 20:15 Albuterol/ Ipratropium (Duoneb Neb) 1 ampule Q4HR NEB PRN NEB SOB/WHEEZING; Start 10/19/17 at 20:15 Azithromycin (Zithromax) 500 mg DAILY PO Last administered on 10/21/17at 08:57; Start 10/20/17 at 14:00 Aztreonam 1000 mg/ Sodium Chloride 100 ml @ 200 mls/hr Q8H IV Last administered on 10/21/17at 05:07; Start 10/19/17 at 22:00 Bisacodyl (Dulcolax Supp) 10 mg DAILY PRN RECTAL SEVERE CONSITIPATION; Start at 18:45 Budesonide/ Formoterol Fumarate (Symbicort 160-4.5 Mcg Inh) 2 puff Q12HR INH Last administered on 10/21/17at 08:56; Start 10/19/17 at 21:00 Fluoxetine HCl (PROzac) 20 mg DAILY PO Last administered on 10/21/17at 08:57; Start 10/20/17 at 09:00 Lactulose (Lactulose Liq) 30 ml DAILY PRN PO SEVERE CONSITIPATION Last administered on 10/21/17at 08:57; Start 10/19/17 at 18:45 Levothyroxine Sodium (Synthroid) 125 mcg DAILY@0600 PO Last administered on at 05:05; Start 10/20/17 at 06:00 Magnesium Hydroxide (Milk Of Magnesia Liq) 30 ml Q12H PRN PO Mild constipation Last administered on 10/21/17at 08:58; Start 10/19/17 at 18:45 Miscellaneous Information SPECIFIC LAB TO BE BRITTNEE... ONCE ONCE .XX ; Start 10/21 at 09:45; Stop 10/21/17 at 09:46; Status DC Morphine Sulfate (Morphine Inj) 4 mg ONCE ONCE IV PUSH Last administered on at 14:36; Start 10/19/17 at 14:15; Stop 10/19/17 at 14:16; Status DC Moxifloxacin HCl 250 ml @ 250 mls/hr ONCE ONCE IV Last administered on at 14:38; Start 10/19/17 at 14:15; Stop 10/19/17 at 15:14; Status DC Naloxone HCl (Narcan Inj) 0.4 mg UNSCH PRN IV PUSH SEE LABEL COMMENTS; Start at 18:45 Ondansetron HCl (Zofran Inj) 4 mg Q6H PRN IVP NAUSEA OR VOMITING; Start at 18:45 Pharmacy Profile Note 0 ml @ 0 mls/hr UNSCH OTHER ; Start 10/19/17 at 20:15 Senna/Docusate Sodium (Lela-Colace) 1 tab BID PO Last administered on at 08:56; Start 10/19/17 at 21:00 Sennosides (Senokot) 17.2 mg Q12H PRN PO Moderate constipation Last administered on 10/20/17at 17:31; Start 10/19/17 at 18:45 Sodium Chloride (NS Flush) 2 ml BID IV FLUSH Last administered on 10/21/17at 08: 56; Start 10/19/17 at 21:00 Vancomycin HCl 1000 mg/Sodium Chloride 250 ml @ 250 mls/hr ONCE ONCE IV Last administered on 10/19/17at 16:22; Start 10/19/17 at 14:15; Stop 10/19/17 at 15:14 ; Status DC Vancomycin HCl 1500 mg/Sodium Chloride 515 ml @ 257.5 mls/ hr Q12H IV Last administered on 10/21/17at 10:16; Start 10/20/17 at 10:00 A/P Problem List: (1) Sepsis ICD Code: A41.9 - Sepsis, unspecified organism (2) UTI (urinary tract infection) ICD Code: N39.0 - Urinary tract infection, site not specified Status: Acute (3) PNA (pneumonia) ICD Code: J18.9 - Pneumonia, unspecified organism Assessment and Plan 1. Sepsis- pneumonia/UTI: s/p LP with CSF pleocytosis/ gram stain/culture negative- ID consult appreciated- continue antibiotics. Discharge Planning hopefully soon-when cleared by ID. Problem Qualifiers (1) UTI (urinary tract infection): Qualified Codes: N30.00 - Acute cystitis without hematuria Yaima Saenz MD Oct 21, 2017 12:00
--- NOTE | 2017-10-21 14:23 | HHI.DCPOC ---
Discharge Care Plan Diagnosis: (1) Pneumonia Goals to Promote Your Health * To prevent worsening of your condition and complications * To maintain your health at the optimal level Directions to Meet Your Goals Take your medications as prescribed Follow your dietary instruction Follow activity as directed Keep your appointments as scheduled Take your immunizations and boosters as scheduled If your symptoms worsen call your PCP, if no PCP go to Urgent Care Center or Emergency Room Smoking is Dangerous to Your Health. Avoid second hand smoke Call the 24-hour hour crisis hotline for domestic abuse at Kathleen Garza PA-C Oct 21, 2017 2:23 pm
[2017-10-21 16:07] VITALS: BP 117/58; PULSE 74; RESP 18; TEMP 98.8; O2SAT 96
[2017-10-21] MEDS ORDERED: LEVO750T3 PO (17:25)
--- NOTE | 2017-10-21 17:28 | HHI.IDPN ---
Subjective Subjective Remarks Patient is a 57-year-old female, presented to the hospital complaining of 2 day history of fever. She also has been having some mild cough and would bring up some whitish phlegm. Patient recently had a vaginal hysterectomy about 3 weeks ago. According to the patient even prior to her hysterectomy, she has been experiencing suprapubic fullness and discomfort as well as some difficulty initiating her urination. She stated that she has had her urine tested, but has not been told that he was abnormal. Her urinary complain is still present. Patient also has had some neck and radiates anteriorly to her head. NO photophobia. During the start of her urinary problem, she has not had any fevers. Patient denies any chest pain or any shortness of breath. She has not had any nausea or vomiting or any diarrhea. Patient lives with her , and has not been exposed to anyone sick. They have 2 dogs at home. She has not had any recent travel. On admission her WBC was elevated. She has had some fevers. Chest x-ray showing some patchy infiltrates on the left side. Her urinalysis is showing pyuria. Infectious disease consultation has been requested to evaluate the patient. Notes reviewed Temps ok Feels better Main issue is heaviness in her neck, but this is better compared to admission Cultures reviewed Antibiotics Current Medications Medications (Trade) Dose Ordered Sig/Pearl Route Start Time Stop Time Status Last Admin (NS Flush) 2 ml UNSCH PRN IV FLUSH 10/19/17 18:45 (NS Flush) 2 ml BID IV FLUSH 10/19/17 21:00 10/21/17 08:56 (Zofran Inj) 4 mg Q6H PRN IVP 10/19/17 18:45 (Narcan Inj) 0.4 mg UNSCH PRN IV PUSH 10/19/17 18:45 (Lela-Colace) 1 tab BID PO 10/19/17 21:00 10/21/17 08:56 (Milk Of Magnesia Liq) 30 ml Q12H PRN PO 10/19/17 18:45 (Senokot) 17.2 mg Q12H PRN PO 10/19/17 18:45 10/20/17 17:31 (Dulcolax Supp) 10 mg DAILY PRN RECTAL 10/19/17 18:45 (Lactulose Liq) 30 ml DAILY PRN PO 4/20/18 18:45 Pharmacy Profile Note 0 ml @ 0 mls/hr UNSCH OTHER 10/19/17 20:15 Aztreonam 1000 mg/ Sodium Chloride 100 ml @ 200 mls/hr Q8H IV 10/19/17 22:00 10/21/17 13:51 ([place] 5-325 Mg) 1 tab Q4H PRN PO 10/19/17 20:15 10/20/17 21:24 ([place] 10-325 Mg) 1 tab Q4H PRN PO 10/19/17 20:15 10/21/17 14:16 (Tylenol) 650 mg Q4H PRN PO 10/19/17 20:15 (Duoneb Neb) 1 ampule Q4HR NEB PRN NEB 10/19/17 20:15 (Symbicort 160-4.5 Mcg Inh) 2 puff Q12HR INH 10/19/17 21:00 10/21/17 08:56 (PROzac) 20 mg DAILY PO 10/20/17 09:00 10/21/17 08:57 (Synthroid) 125 mcg DAILY@0600 PO 10/20/17 06:00 10/21/17 05:05 Vancomycin HCl 1500 mg/Sodium Chloride 515 ml @ 257.5 mls/ hr Q12H IV 10/20/17 10:00 10/21/17 10:16 (Zithromax) 500 mg DAILY PO 10/20/17 14:00 10/21/17 08:57 Lines PIV Past Medical History Depression Past Surgical History Cholecystectomy Vaginal Hysterectomy Tonsillectomy [place] Teeth Removal Allergies: Coded Allergies: Penicillins (Verified Allergy, Severe, Shortness of Breath, 09/26/17) sulfacetamide (Verified Adverse Reaction, Severe, Nausea/Vomiting, 09/26/17 ) Objective . Vital Signs Date Time Temp Pulse Resp B/P (MAP) Pulse Ox O2 Delivery O2 Flow Rate FiO2 10/21/17 16:07 98.8 74 18 117/58 (77) 96 10/21/17 15:16 18 10/21/17 11:52 97.9 70 20 128/62 (84) 98 10/21/17 08:00 98.2 66 20 130/68 (88) 96 10/21/17 05:09 98.3 69 18 103/64 (77) 95 10/21/17 00:00 98.6 70 20 110/60 (77) 96 10/20/17 20:00 98.5 73 20 137/72 (93) 99 . Laboratory Tests Test 10/20/17 09:22 White Blood Count 8.7 TH/MM3 Red Blood Count 3.03 MIL/MM3 Hemoglobin 9.2 GM/DL Hematocrit 27.4 % Mean Corpuscular Volume 90.3 FL Mean Corpuscular Hemoglobin 30.4 PG Mean Corpuscular Hemoglobin Concent 33.7 % Red Cell Distribution Width 13.5 % Platelet Count 174 TH/MM3 Mean Platelet Volume 8.2 FL Neutrophils (%) (Auto) 58.5 % Lymphocytes (%) (Auto) 17.1 % Monocytes (%) (Auto) 7.1 % Eosinophils (%) (Auto) 16.7 % Basophils (%) (Auto) 0.6 % Neutrophils # (Auto) 5.1 TH/MM3 Lymphocytes # (Auto) 1.5 TH/MM3 Monocytes # (Auto) 0.6 TH/MM3 Eosinophils # (Auto) 1.4 TH/MM3 Basophils # (Auto) 0.1 TH/MM3 CBC Comment DIFF FINAL Differential Comment Laboratory Tests Test 10/20/17 09:22 Blood Urea Nitrogen 8 MG/DL Creatinine 0.77 MG/DL Random Glucose 88 MG/DL Calcium Level 8.5 MG/DL Sodium Level 142 MEQ/L Potassium Level 4.0 MEQ/L Chloride Level 112 MEQ/L Carbon Dioxide Level 25.4 MEQ/L Anion Gap 5 MEQ/L Estimat Glomerular Filtration Rate 78 ML/MIN Microbiology Date/Time Source Procedure Growth Status 10/19/17 13:14 Blood Peripheral Aerobic Blood Culture - Preliminary NO GROWTH IN 2 DAYS Resulted 10/19/17 13:14 Blood Peripheral Anaerobic Blood Culture - Preliminary NO GROWTH IN 2 DAYS Resulted 10/19/17 13:08 Blood Peripheral Aerobic Blood Culture - Preliminary NO GROWTH IN 2 DAYS Resulted 10/19/17 13:08 Blood Peripheral Anaerobic Blood Culture - Preliminary NO GROWTH IN 2 DAYS Resulted 10/19/17 15:38 Cerebral Spinal Fluid Lumbar Puncture Gram Stain - Final Resulted 10/19/17 15:38 Cerebral Spinal Fluid Lumbar Puncture CSF Culture - Preliminary NO GROWTH IN 48 HOURS. Resulted 10/19/17 13:15 Throat Group A Streptococcus Screen - Final NO GP A BETA STREP ISOLATED. Complete 10/19/17 13:15 Throat Group A Streptococcus Screen (FLAVIA) - Final Complete 10/19/17 13:15 Nasal Washing Influenza Types A,B Antigen (FLAVIA) - Final NEGATIVE FOR FLU A AND B ANTIGEN.... Complete 10/20/17 17:30 Urine Catheterized Urine Legionella Antigen - Final PRESUMPTIVE NEGATIVE FOR LEGIONELLA P... Complete 10/20/17 17:30 Urine Catheterized Urine Streptococcus pneumoniae Antigen (M - Final PRESUMPTIVE NEGATIVE FOR STREPTOCOCCU... Complete 10/19/17 14:30 Urine Clean Catch Urine Culture - Final 10-50,000 CFU/ML MIXED GRAM POSITIVE ... Complete Imaging Last Impressions Lumbar Puncture Fluoroscopy 10/19/17 0000 Signed Impressions: Service Date/Time: Thursday, October 19, 2017 15:38 - CONCLUSION: Uncomplicated fluoroscopically guided lumbar puncture with pressures as above. William Trujillo MD Chest X-Ray 10/19/17 0000 Signed Impressions: Service Date/Time: Thursday, October 19, 2017 13:32 - CONCLUSION: 1. Patchy infiltrates left lung. Medical treatment and followup to resolution using serial radiographs. Weston Elaine MD Physical Exam GENERAL: awake and alert, not in respiratory distress. SKIN: Warm and dry. No generalized rash, no ecchymoses and no evidence of embolic lesions. HEAD: Atraumatic. Normocephalic. No temporal wasting, or tenderness. EYES: [place] conjunctiva. No petechia or hemorrhage. Pupils equal, round and reactive to light. Extraocular movements full and intact. No scleral icterus. No injection or drainage. EARS, NOSE AND THROAT: Nose without bleeding or purulent nasal discharge. No sinus tenderness. Mucous membranes pink and moist. No oral lesions noted. NECK: Trachea midline. Supple and not tender, no meningeal signs. No nuchal rigidity CARDIOVASCULAR: Regular rate and rhythm. No murmurs, rubs or gallops heard RESPIRATORY: Clear to auscultation. Breath sounds equal bilaterally. No rales , wheezing or rhonchi ABDOMEN: Soft, nondistended. Has very mild suprapubic tenderness. Bowel sounds present and normoactive. No guarding. No rebound. No organomegaly. EXTREMITIES: No clubbing, cyanosis, or edema.No joint effusion, has good ROM. No calf tenderness. Well perfused and warm. NEUROLOGICAL: Awake and alert. Cranial nerves grossly intact. Motor grossly within normal limits. PSYCHIATRIC: Normal affect, calm and cooperative. LINE: No evidence of infection Assessment & Plan Remarks IMPRESSION Febrile illness, possible sepsis, likely due to PNA - also with UTI/cystitis CAP UTI S/P vaginal hysterectomy Allergy to PCN has tolerated Ancef RECOMMENDATION Levaquin - if tolerated, ok to D/C home today - give 7 days Levaquin on D/C D/C IV Abx If neck pain not better, patient advised to follow-up with her primary MD and see if any further work-up needed D/W Aris NAIDU Explained plan to the patient Carrie Golden MD Oct 21, 2017 17:28
[2017-10-21] MEDS ORDERED: LEVOFLOXACIN 750 MG TAB PO SCH (17:30)
== END 2017-10-21 18:36 | disposition home or self-care (01) | DRG 871 ==
LOC: NEPE 12:18 → NEDA 18:13 → INTOOBSV 18:13 → OBSVTOIN 20:04 → NEDH 22:34 → NEDA 10-20 08:43 → N04B 10-20 08:50 → NEPHCDU 10-20 08:52
PROVIDERS: ADMIT Internal Medicine; ATTEND Internal Medicine
PROC: 009U3ZX Drainage of Spinal Canal, Percutaneous Approach, Diagnostic (ICD-10-PCS; principal; 2017-10-19)
DX: A41.9 Sepsis, unspecified organism (principal); J18.1 Lobar pneumonia, unspecified organism; N30.00 Acute cystitis without hematuria; M54.9 Dorsalgia, unspecified; F32.9 Major depressive disorder, single episode, unspecified; J45.909 Unspecified asthma, uncomplicated; M19.90 Unspecified osteoarthritis, unspecified site; E07.9 Disorder of thyroid, unspecified; Z88.0 Allergy status to penicillin; Z88.2 Allergy status to sulfonamides
CPT/HCPCS: 62270; 71046; 77003; 80048; 80202; 81001; 82945; 83605; 84157; 85025; 85610; 85730; 87040; 87070; 87081; 87086; 87205; 87449; 87804; 87880; 89051; 96365; 96366; 96367; 96375; J2270; J2280; J2405; J3370; J7030; J7040; J7050

== ENCOUNTER → 2017-10-25 | Outpatient (CLI) | payer OTHER ==
[~2017-10-25] MED LIST changes: -IRON18TA PO; +LEVO750T3 PO; -TYLETAB34 PO
--- NOTE | 2017-10-25 15:25 | RADRPT ---
EXAM DATE/TIME: 10/25/2017 14:40 [facility] COMPARISON: No previous studies available for comparison. INDICATIONS : Redness/swelling. MEDICAL HISTORY : Hypothyroidism. Pnemonia. Asthma. Arthritis. Depression. SURGICAL HISTORY : Hysterectomy. Cholecystectomy. Tonsillectomy. ENCOUNTER: Initial ACUITY: 4-6 days PAIN SCORE: 7/10 LOCATION: Right Arm. AREA EVALUATED: Right arm. FINDINGS: MASSES: There is a thrombosed portion of the cephalic vein extending for 3.4 cm in length. The cephalic vein and superior inferior to it are both patent FLUID COLLECTIONS: None. OTHER: Negative. CONCLUSION: 3.4 cm area of thrombosed cephalic vein with patent vein above and below the thrombus. The thrombus c orresponds with the recent IV placement. Frankie Dougherty MD on October 25, 2017 at 15:21 Board Certified Radiologist. This report was verified electronically.
== END ==
LOC: HRAD 13:48
PROVIDERS: ATTEND Obstetrics & Gynecology
DX: L03.113 Cellulitis of right upper limb (principal)
CPT/HCPCS: 76882